=== PATIENT | female | born 1995 | race Caucasian/White ===

== ENCOUNTER 2020-04-29 12:52 | Emergency (ER) | payer OTHER, SELFPAY ==
[2020-04-29] VITALS (7 sets, daily range): BP systolic 106–127; BP diastolic 56–77; PULSE 63–80; RESP 16–18; TEMP 36.8; O2SAT 99–100; BMI 29.5
[2020-04-29 13:18] LABS: Add Manual Diff / Slide Review NO; Basophils Absolute Auto 100 /uL (0-100); Basophils Percent Auto 0.5 % (0-2); Eosinophils Absolute Auto 1300 /uL (0-450); Eosinophils Percent Auto 11.6 % (2-4); Hematocrit 40.9 % (36-46); Hemoglobin 13.3 g/dL (12.0-16.0); Lymphocytes Absolute Auto 1900 /uL (1100-4500); Lymphocytes Percent Auto 17.7 % (25-40); Mean Corpuscular HGB Conc 32.6 % (30-36); Mean Corpuscular Hemoglobin 29.2 PG (26-34); Mean Corpuscular Volume 89.4 fL (80-100); Monocytes Absolute Auto 700 /uL (0-900); Monocytes Percent Auto 6.7 % (3-14); Neutrophils Absolute Auto 6900 /uL (1500-7000); Neutrophils Percent Auto 63.5 % (50-75); Platelet Count 240 X10^3/uL (150-400); Red Blood Cell Count 4.57 X10^6/uL (4.0-5.2); Red Cell Distribution Width 13.7 % (11.6-14.8); White Blood Cell Count 10.9 X10^3/uL (4.5-11.0)
[2020-04-29 13:22] LABS: INR 1.2 (0.9-1.3); Prothrombin Time 13.8 SECONDS (10.1-12.7)
[2020-04-29 13:24] LABS: Alanine Aminotransferase 21 IU/L (<35); Albumin 4.4 g/dL (3.5-5.0); Albumin Globulin Ratio 1.5 (1.0-2.8); Alkaline Phosphatase 78 U/L (38-126); Aspartate Aminotransferase 32 IU/L (14-36); Bilirubin Total 0.3 mg/dL (0.2-1.3); Blood Urea Nitrogen 18 mg/dL (7-17); Calcium 8.9 mg/dL (8.4-10.2); Carbon Dioxide 27 mmol/L (22-32); Chloride 108 mmol/L (98-107); Estimated Glomerular Filt Rate > 60.0 mL/min (>60); Glucose 87 mg/dL (70-100); HEMOLYSIS 34 (0-50); Lipase 36 U/L (23-300); PTT Partial Thromboplastin Tim 33 SECONDS (26.4-36.2); Potassium 3.9 mmol/L (3.4-5.1); Sodium 139 mmol/L (137-145); Total Protein 7.4 g/dL (6.3-8.2)
[2020-04-29] MEDS: SODIUM CHLORIDE 0.9% 1,000 ML 1000 ML IV ×2 (13:50→15:27)
[2020-04-29] MEDS: PANTOPRAZOLE 40 MG VIAL IV (13:51)
[2020-04-29] MEDS: ONDANSETRON 4 MG/2 ML INJ IV (13:51)
--- NOTE | 2020-04-29 15:52 | ED_ITS ---
HPI - Abdominal Pain <RODGER Cohen - Last Filed: 04/29/20 16:03> General Chief Complaint: Abdominal Pain Stated Complaint: abdominal pain Time Seen by Provider: 04/29/20 13:20 Source: patient Mode of arrival: Ambulatory Limitations: no limitations History of Present Illness HPI narrative: The patient is a 24-year-old Female nonsmoker who denies pertinent medical history who presents with a chief complaint of diarrhea since she ate out at [employer] the evening of the . She states that she is still having soft stools, they were previously watery. She states she is having mu ltiple per day. No fevers, no muscle aches or chills. Denies vomiting, did have some nausea. States that she has cramps before she has bowel movements otherwise no abdominal pain. Denies any dysuria urgency or frequency states she is on her menstrual cycle, day 2. Related Data Previous Rx's Medication Instructions Recorded ondansetron 4 mg PO Q6H PRN #20 tab 04/29/20 pantoprazole [Protonix] 20 mg PO DAILY #14 tab 04/29/20 Allergies Allergy/AdvReac Type Severity Reaction Status Date / Time No Known Drug Allergies Allergy Verified 04/29/20 13:03 Review of Systems <RODGER Cohen - Last Filed: 04/29/20 16:03> Review of Systems Narrative: GENERAL: Denies chills, fatigue, malaise, fever, sweats. HEENT: Denies sinus pain, ear pain, sore throat, difficulty swallowing, dizziness. RESPIRATORY: Denies dyspnea, cough, wheezing, hemoptysis, sputum. CARDIOVASCULAR: Denies chest pain, palpitations, orthopnea, edema, GASTROINTESTINAL: See HPI : Denies dysuria, frequency, incontinence, hematuria, urinary retention. MUSCULOSKELETAL: denies weakness, joint pain, or bony pain SKIN: Denies rash, skin lesions, or other NEUROLOGIC: Denies weakness, headache, numbness, change in speech, confusion, seizures, incoordination. PSYCHIATRIC: No concerning psychosocial issues. 12 point review of systems is negative except for those stated above Patient History <RODGER Cohen - Last Filed: 04/29/20 16:03> Social History Smoking Status: Never smoker Smoking Status: Never smoker alcohol intake frequency: holidays/special occasions only Substance Use Type: does not use Exam <RODGER Cohen - Last Filed: 04/29/20 16:03> Narrative Exam Narrative: GENERAL: This is a well-nourished, well-developed patient, in no acute distress HEAD: Atraumatic. Normocephalic. No temporal or scalp tenderness. EYES: Pupils equal round and reactive. Extraocular motions intact. No scleral icterus. No injection or drainage. ENT: Nose without bleeding, purulent drainage or septal hematoma. Throat without erythema, wearing a mask. Airway patent. NECK: Trachea midline. No JVD or lymphadenopathy. Supple, nontender, no meningeal signs. CARDIOVASCULAR: Regular rate and rhythm RESPIRATORY: Clear to auscultation. Breath sounds equal bilaterally. No wheezes, rales, or rhonchi. No cough. No increased respiratory effort. No accessory muscle use. GASTROINTESTINAL: Abdomen soft, non-tender, nondistended. No hepato- splenomegaly, or palpable masses. No guarding. Active bowel sounds all 4 quad rants EXTREMITIES: No clubbing, cyanosis, or edema. No joint tenderness, effusion, or edema noted. BACK: Nontender without deformity or crepitance. No flank tenderness. NEURO: AOx3. SKIN: No rash or erythema on visible skin Initial Vital Signs Initial Vital Signs: Vital Signs Temperature 98.2 F 04/29/20 13:00 Pulse Rate 80 04/29/20 13:00 Respiratory Rate 16 04/29/20 13:00 Blood Pressure 117/77 04/29/20 13:00 Pulse Oximetry 100 04/29/20 13:00 <Romy Francisco DO - Last Filed: 04/30/20 19:11> Initial Vital Signs Initial Vital Signs: Vital Signs Temperature 98.2 F 04/29/20 13:00 Pulse Rate 80 04/29/20 13:00 Respiratory Rate 16 04/29/20 13:00 Blood Pressure 117/77 04/29/20 13:00 Pulse Oximetry 100 04/29/20 13:00 Scores <RODGER Cohen - Last Filed: 04/29/20 16:03> GCS Dubberly coma scale eye opening: Spontaneous Jaden coma scale verbal response: Orientated Dubberly coma scale motor response: Obey commands Dubberly coma scale total score: 15 Course <ANA Cohen-BC - Last Filed: 04/29/20 16:03> Orders Ordered: Discontinued Medications Sodium Chloride (Normal Saline 0.9%) 1,000 mls @ 1,000 mls/hr IV BOLUS ONE Stop: 04/29/20 14:41 Last Infusion: 04/29/20 15:08 Dose: 0 mls/hr Documented by: Admin: 04/29/20 13:50 Dose: 1,000 mls/hr Documented by: AMANUEL Sodium Chloride (Normal Saline 0.9%) 1,000 mls @ 1,000 mls/hr IV BOLUS ONE Stop: 04/29/20 15:40 Last Admin: 04/29/20 15:27 Dose: 1,000 mls/hr Documented by: CHINO Ondansetron HCl (Ondansetron 4 Mg/2 Ml Inj) 4 mg IV NOW ONE Stop: 04/29/20 13:43 Last Admin: 04/29/20 13:51 Dose: 4 mg Documented by: AMANUEL Ondansetron HCl (Ondansetron 4 Mg/2 Ml Inj) 4 mg IV NOW ONE Stop: 04/29/20 15:29 Last Admin: 04/29/20 15:55 Dose: Not Given Documented by: GRAYSON Pantoprazole Sodium (Pantoprazole 40 Mg Vial) 40 mg IV NOW ONE Stop: 04/29/20 13:43 Last Admin: 04/29/20 13:51 Dose: 40 mg Documented by: AMANUEL Vital Signs Vital signs: Vital Signs - 8 hr 04/29/20 13:00 04/29/20 13:31 04/29/20 14:00 Temperature 98.2 F Pulse Rate 80 72 65 Respiratory Rate 16 Blood Pressure 117/77 127/77 116/61 Pulse Oximetry 100 100 99 04/29/20 14:30 04/29/20 15:00 Temperature Pulse Rate 63 66 Respiratory Rate Blood Pressure 115/64 Pulse Oximetry 100 100 <Romy Francisco DO - Last Filed: 04/30/20 19:11> Orders Ordered: Discontinued Medications Sodium Chloride (Normal Saline 0.9%) 1,000 mls @ 1,000 mls/hr IV BOLUS ONE Stop: 04/29/20 14:41 Last Infusion: 04/29/20 15:08 Dose: 0 mls/hr Documented by: Admin: 04/29/20 13:50 Dose: 1,000 mls/hr Documented by: AMANUEL Sodium Chloride (Normal Saline 0.9%) 1,000 mls @ 1,000 mls/hr IV BOLUS ONE Stop: 04/29/20 15:40 Last Admin: 04/29/20 15:27 Dose: 1,000 mls/hr Documented by: CHINO Ondansetron HCl (Ondansetron 4 Mg/2 Ml Inj) 4 mg IV NOW ONE Stop: 04/29/20 13:43 Last Admin: 04/29/20 13:51 Dose: 4 mg Documented by: AMANUEL Ondansetron HCl (Ondansetron 4 Mg/2 Ml Inj) 4 mg IV NOW ONE Stop: 04/29/20 15:29 Last Admin: 04/29/20 15:55 Dose: Not Given Documented by: GRAYSON Pantoprazole Sodium (Pantoprazole 40 Mg Vial) 40 mg IV NOW ONE Stop: 04/29/20 13:43 Last Admin: 04/29/20 13:51 Dose: 40 mg Documented by: AMANUEL Vital Signs Vital signs: Vital Signs - 8 hr 04/29/20 13:00 04/29/20 13:31 04/29/20 14:00 Temperature 98.2 F Pulse Rate 80 72 65 Respiratory Rate 16 Blood Pressure 117/77 127/77 116/61 Pulse Oximetry 100 100 99 04/29/20 14:30 04/29/20 15:00 Temperature Pulse Rate 63 66 Respiratory Rate Blood Pressure 115/64 Pulse Oximetry 100 100 MDM - Abdominal Pain <ANA Cohen-BC - Last Filed: 04/29/20 16:03> Differential Diagnosis Differential diagnosis: Likely abdominal pain and gastroenteritis Lab Data Attestation: I reviewed the patient's lab results. Result diagrams: 04/29/20 13:06 04/29/20 13:06 Labs: Lab Results 04/29/20 04/29/20 04/29/20 Range/Units 13:06 13:06 13:06 WBC 10.9 (4.5-11.0) X10^3/uL RBC 4.57 (4.0-5.2) X10^6/uL Hgb 13.3 (12.0-16.0) g/dL Hct 40.9 (36-46) % MCV 89.4 (80-100) fL MCH 29.2 (26-34) PG MCHC 32.6 (30-36) % RDW 13.7 (11.6-14.8) % Plt Count 240 (150-400) X10^3/uL Neut % (Auto) 63.5 (50-75) % Lymph % (Auto) 17.7 L (25-40) % Bureau % (Auto) 6.7 (3-14) % Eos % (Auto) 11.6 H (2-4) % Baso % (Auto) 0.5 (0-2) % Neut # (Auto) 6900 (8477-2523) /uL Lymph # (Auto) 1900 (5118-8684) /uL Bureau # (Auto) 700 (0-900) /uL Eos # (Auto) 1300 H (0-450) /uL Baso # (Auto) 100 (0-100) /uL PT 13.8 H (10.1-12.7) SECONDS INR 1.2 (0.9-1.3) APTT 33 (26.4-36.2) SECONDS Sodium 139 (137-145) mmol/L Potassium 3.9 (3.4-5.1) mmol/L Chloride 108 H (98-107) mmol/L Carbon Dioxide 27 (22-32) mmol/L BUN 18 H (7-17) mg/dL Creatinine 0.75 (0.52-1.04) mg/dL Estimated GFR > 60.0 (>60) mL/min BUN/Creatinine Ratio 24.0 H (6-22) Glucose 87 (70-100) mg/dL Calcium 8.9 (8.4-10.2) mg/dL Total Bilirubin 0.3 (0.2-1.3) mg/dL AST 32 (14-36) IU/L ALT 21 (<35) IU/L Alkaline Phosphatase 78 (38-126) U/L Total Protein 7.4 (6.3-8.2) g/dL Albumin 4.4 (3.5-5.0) g/dL Globulin 3.0 (1.7-4.1) g/dL Albumin/Globulin Ratio 1.5 (1.0-2.8) Lipase 36 (23-300) U/L Point of care testing: Point of Care Testing Test Results Negative Urine Dip Bedside Urine Glucose Negative Bedside Urine Bilirubin - Negative Bedside Urine Ketone - Negative Urine Specific Bittinger 1.030 Bedside Urine Occult Blood +++ Bedside Urine pH 6 Bedside Urine Protein - Negative Bedside Urine Urobilinogen - Negative Bedside Urine Nitrite - Negative Bedside Urine Leukocytes - Negative Esterase MDM Narrative Medical decision making narrative: The patient is a 24-year-old female who presents with a chief complaint of diarrhea and abdominal cramping. The patient has reassuring vital signs, normal renal function, no leukocytosis. Urine has no signs of infection. She is nontender to palpation all stomach quadrants on exam. She is given IV fluid, Protonix and Zofran and feels improved. Will hold off on imaging at this point to help avoid radiation, patient is okay with plan. She was unable to give a stool sample if throughout her several hour stay in the emergency department. I discussed at length rest pushing fluids, following up with primary care provider coming back to the ER for any acute concerns such as abdominal pain with fever, inability keep down fluids etcetera. Patient was able to tolerate p.o. food and fluids in the emergency department prior to discharge. No questions or concerns upon discharge states understanding return precautions as well as follow-up care <Romy Francisco, DO - Last Filed: 04/30/20 19:11> Lab Data Labs: Lab Results 04/29/20 04/29/20 04/29/20 Range/Units 13:06 13:06 13:06 WBC 10.9 (4.5-11.0) X10^3/uL RBC 4.57 (4.0-5.2) X10^6/uL Hgb 13.3 (12.0-16.0) g/dL Hct 40.9 (36-46) % MCV 89.4 (80-100) fL MCH 29.2 (26-34) PG MCHC 32.6 (30-36) % RDW 13.7 (11.6-14.8) % Plt Count 240 (150-400) X10^3/uL Neut % (Auto) 63.5 (50-75) % Lymph % (Auto) 17.7 L (25-40) % Bureau % (Auto) 6.7 (3-14) % Eos % (Auto) 11.6 H (2-4) % Baso % (Auto) 0.5 (0-2) % Neut # (Auto) 6900 (7098-2776) /uL Lymph # (Auto) 1900 (6159-9619) /uL Bureau # (Auto) 700 (0-900) /uL Eos # (Auto) 1300 H (0-450) /uL Baso # (Auto) 100 (0-100) /uL PT 13.8 H (10.1-12.7) SECONDS INR 1.2 (0.9-1.3) APTT 33 (26.4-36.2) SECONDS Sodium 139 (137-145) mmol/L Potassium 3.9 (3.4-5.1) mmol/L Chloride 108 H (98-107) mmol/L Carbon Dioxide 27 (22-32) mmol/L BUN 18 H (7-17) mg/dL Creatinine 0.75 (0.52-1.04) mg/dL Estimated GFR > 60.0 (>60) mL/min BUN/Creatinine Ratio 24.0 H (6-22) Glucose 87 (70-100) mg/dL Calcium 8.9 (8.4-10.2) mg/dL Total Bilirubin 0.3 (0.2-1.3) mg/dL AST 32 (14-36) IU/L ALT 21 (<35) IU/L Alkaline Phosphatase 78 (38-126) U/L Total Protein 7.4 (6.3-8.2) g/dL Albumin 4.4 (3.5-5.0) g/dL Globulin 3.0 (1.7-4.1) g/dL Albumin/Globulin Ratio 1.5 (1.0-2.8) Lipase 36 (23-300) U/L Point of care testing: Point of Care Testing Test Results Negative Urine Dip Bedside Urine Glucose Negative Bedside Urine Bilirubin - Negative Bedside Urine Ketone - Negative Urine Specific Bittinger 1.030 Bedside Urine Occult Blood +++ Bedside Urine pH 6 Bedside Urine Protein - Negative Bedside Urine Urobilinogen - Negative Bedside Urine Nitrite - Negative Bedside Urine Leukocytes - Negative Esterase Discharge Plan Departure Patient Disposition: Home Clinical Impression: Abdominal cramping, Nausea Diarrhea Qualifiers: Diarrhea type: unspecified type Qualified Code(s): R19.7 - Diarrhea, unspecified Instructions: Diarrhea (Alternative Therapy), DI for Abdominal Pain-Adult, DI for Diarrhea and Traveler's Diarrhea -- Adult, DI for Nausea -- Adult Activity Restrictions/Additional Instructions: Thank you for trusting us with your care today As discussed, I sent 2 prescriptions to [facility] in [place]. Please rest and push fluids. Please follow-up with primary care provider. I have given you contact information to the [facility] human resources file clerk who can help you identify a PCP in the area. As discussed, please come back to the ER for acute concerns such as abdominal pain with fever, inability keep down fluids etcetera Prescriptions: New ondansetron 4 mg tablet,disintegrating 4 mg PO Q6H PRN (Reason: nausea and vomiting) Qty: 20 RF: 0 pantoprazole [Protonix] 20 mg tablet,delayed release (DR/EC) 20 mg PO DAILY Qty: 14 RF: 0 Referrals: [facility] [Outside] <Romy Francisco DO - Last Filed: 04/30/20 19:11> Cosign ED Attending Cosmoiraature Attestation: I was immediately available in the department for consultation. Documentation has been reviewed.
--- NOTE | 2020-05-27 22:45 | PC.NURSE ---
late entry: IV fluids NS 1000ml ended at 1600
== END 2020-04-29 16:20 | disposition home or self-care (01) ==
PROVIDERS: Emergency Medicine; Emergency Provider Nurse Practitioner Family
DX: R10.9 Unspecified abdominal pain (principal); R11.0 Nausea; R19.7 Diarrhea, unspecified
CPT/HCPCS: 36415; 80053; 81003; 81025; 83690; 85025; 85610; 85730; 96361; 96374; 96375; 99281; 99284; C9113; J2405

== ENCOUNTER → 2022-01-13 14:24 | Outpatient (CLI) | payer OTHER, MEDICAID, SELFPAY ==
[2022-01-13 15:06] LABS: Add Manual Diff / Slide Review NO; Basophils Absolute Auto 0 /uL (0-100); Basophils Percent Auto 0.1 % (0-2); Eosinophils Absolute Auto 0 /uL (0-450); Eosinophils Percent Auto 0.4 % (2-4); Hematocrit 37.9 % (36-46); Hemoglobin 13.5 g/dL (12.0-16.0); Lymphocytes Absolute Auto 1400 /uL (1100-4500); Lymphocytes Percent Auto 13.5 % (25-40); Mean Corpuscular HGB Conc 35.7 % (30-36); Mean Corpuscular Hemoglobin 31.1 PG (26-34); Monocytes Absolute Auto 600 /uL (0-900); Monocytes Percent Auto 5.5 % (3-14); Neutrophils Absolute Auto 8600 /uL (1500-7000); Neutrophils Percent Auto 80.5 % (50-75); Platelet Count 214 X10^3/uL (150-400); Red Blood Cell Count 4.35 X10^6/uL (4.0-5.2); Red Cell Distribution Width 13.9 % (11.6-14.8); White Blood Cell Count 10.7 X10^3/uL (4.5-11.0)
[2022-01-13 16:40] LABS: Appearance Urine UA CLEAR; Bilirubin Urine UA NEGATIVE (NEGATIVE); Color Urine UA YELLOW; Glucose Urine UA NEGATIVE (Negative); Ketones Urine UA TRACE (NEGATIVE); Leukocyte Esterase Urine UA TRACE (NEGATIVE); Nitrite Urine UA NEGATIVE (Negative); Occult Blood Urine UA NEGATIVE (Negative); Protein Urine UA TRACE (Negative)
[2022-01-13 16:42] LABS: pH Urine UA 6.5 (4.5-8.0)
[2022-01-13 16:51] LABS: Bacteria Urine None Seen; RBC Urine 0-1/HPF (0-5/HPF); Squamous Epithelial Cell Urine 0-1 /HPF (0-5/HPF); Transitional Epi Cells Urine 0-1/HPF (0-5/HPF); WBC Urine 5-10/HPF (0-5/HPF)
[2022-01-13 17:31] LABS: Hepatitis B Surface Antigen NEGATIVE s/c (NEGATIVE); Rubella Antibody IgG 5.7 IU/mL (>15)
[2022-01-13 17:43] LABS: HIV 1 & 2 Ab/Ag 4th Gen Combo NEGATIVE (NEGATIVE); Hep C Virus Ab w/Reflex Quant NEGATIVE s/c (NEGATIVE)
[2022-01-14 09:44] LABS: RPR Screen Non Reactive (Non Reactive)
[2022-01-14 11:38] LABS: Varicella IgG Antibody <135 index (Immune >165)
== END ==
PROVIDERS: Referring Provider Obstetrics & Gynecology; Visit Provider Obstetrics & Gynecology
DX: Z34.01 Encounter for supervision of normal first pregnancy, first trimester (principal)
CPT/HCPCS: 36415; 80055; 81003; 81015; 86787; 86803; 86850; 86900; 86901; 87086; 87389

== ENCOUNTER → 2022-02-16 14:57 | Outpatient (CLI) | payer OTHER, MEDICAID, SELFPAY ==
--- NOTE | 2022-02-16 14:57 | DI.US.S_ITS ---
PROCEDURE: US OB >= 14 WEEKS FETUS INDICATIONS: 20 Week Anatomy Scan OUTSIDE/PRIOR DATING DATA: Last menstrual period (LMP): 09/30/2021. LMP-based estimated date of delivery (RONY): 07/07/2021. First dating scan (date and location): 02/16/2022. Estimated date of delivery (RONY) from first dating scan: 06/30/2021. TECHNIQUE: Real-time scanning was performed of the fetus, with image documentation and biometric measurements. Endovaginal scanning: Not performed COMPARISON: None. FINDINGS: General: A single living intrauterine gestation is present. Presentation: Variable. Placenta: Placental position is left frontal , without previa. Amniotic fluid index: 13.3 cm, normal range is 5-24 cm. Single deepest vertical pocket is 4.5 cm. heart rate: 132 beats per minute. Maternal cervical canal: 3.6 cm long. Normal lower limit is 2.5 cm. biometrics: Biparietal diameter: 20 weeks 6 days Head circumference: 20 weeks 5 days Abdominal circumference: 21 weeks 5 days Femur length: 20 weeks 2 days Clinically estimated gestational age: 19 weeks 6 days Composite gestational age from present scan: 20 weeks 6 days Estimated weight and percentile: 394 g; 96% Anatomic survey: Neuro: Ventricles are non-dilated at less than 10 mm. Cisterna magna is normal at 3-11 mm. Cerebellum is normal in size and morphology. Nuchal skin fold: Normal at less than 6 mm between 14-21 weeks gestational age. Face: Nose and lips, facial profile are normal. Spine: No evidence for spina bifida. Heart: 4-chambered heart is present, with normal ventricular outflow tracts. Diaphragm: Diaphragm is intact. Stomach: Left-sided stomach is present. Kidneys: No hydronephrosis. Normal is less than 5 mm in 2nd trimester, less than 7 mm in 3rd trimester. Cord: 3-vessel cord. Marginal placental cord insertion. Bladder: Normal in size. Extremities: All 4 extremities identified. IMPRESSION: 1. A single living intrauterine gestation with an estimated gestational age of 20 weeks 6 days based on the current ultrasound, corresponding to ultrasound RONY 06/30/2021. 2. Normal anatomic survey. 3. The estimated weight is at 96%. Recommend clinical and imaging follow-up. We strive to produce accurate, complete, and clear reports of imaging services. To assist us in improving patient care, this report was composed using standard report templates and voice recognition software. Therefore, it may contain abnormal punctuation, insertions and/or omissions. Occasional wrong-word or sound-alike substitutions may occur. Though we review the report and make efforts to correct it, we do recommend that the report be read carefully in proper context to recognize any text inaccuracies. Dictated by: Kee Benton M.D. on 02/16/2022 at 16:51 Approved by: Kee Benton M.D. on 02/17/2022 at 9:22
== END ==
PROVIDERS: Referring Provider Obstetrics & Gynecology; Visit Provider Obstetrics & Gynecology
DX: Z3A.20 20 weeks gestation of pregnancy (principal); Z34.02 Encounter for supervision of normal first pregnancy, second trimester
CPT/HCPCS: 76811

== ENCOUNTER 2022-02-25 01:40 | Emergency (ER) | payer OTHER, MEDICAID, SELFPAY ==
[2022-02-25 01:45] VITALS: BP 111/63; PULSE 78; RESP 18; TEMP 36.6
--- NOTE | 2022-02-25 01:45 | PC.NURSE ---
Here with c/o epigastric left sided pain that started this evening - believes that she awoke from sleep bc of the pain - 2 episodes of vomiting - PWD with respirations equal and unlabored bilaterally - airway patent
--- NOTE | 2022-02-25 01:53 | DI.US.S_ITS ---
PROCEDURE: US ABDOMEN LIMITED INDICATIONS: epigastric /RUQ pain, radiation to back, 21 weeks preg TECHNIQUE: Real-time scanning was performed of the abdominal and retroperitoneal organs, with image documentation. COMPARISON: None. FINDINGS: Liver: Liver is normal in size and homogeneous in echotexture. Gallbladder: There is a 4 mm stone in dependent portion of gallbladder lumen near neck of gallbladder. No gallbladder wall thickening or pericholecystic fluid. No sonographic Cazares sign. Biliary ducts: Intrahepatic bile ducts are non-dilated. Extrahepatic bile duct caliber measures 4.3 mm. Normal is 6-7 mm or less in diameter, or 10 mm or less post-cholecystectomy. Pancreas: Pancreas is poorly visualized due to overlying bowel gas. IMPRESSION: 1. Cholelithiasis without sonographic evidence of acute cholecystitis. No biliary ductal dilatation. 2. Normal appearing liver. No discrepancies. Dictated by: Merlin Peters M.D. on 02/25/2022 at 8:22 Approved by: Merlin Peters M.D. on 02/25/2022 at 8:23
--- NOTE | 2022-02-25 02:23 | ED.BACK ---
HPI - Back Pain/Injury General Chief Complaint: Back Pain/Injury Stated Complaint: MID TO UPPER BACK PAIN 21 WEEKS Time Seen by Provider: 02/25/22 01:52 Source: patient History of Present Illness HPI Narrative: 26-year-old female nonsmoker at 21 weeks without chronic medical history presents with significant other and a chief complaint of epigastric and right upper quadrant pain that radiates to her upper back between her shoulder blades. She states that it came on essentially suddenly about an hour prior to her arrival and she thinks it woke her up. Lying flat seems to make it worse but lying on her side seems to help. She states it big deep breath makes it worse though she is not short of breath. She is had no cough, hemoptysis. She denies headache, runny nose or sore throat. She denies chest pain but states her upper abdomen hurts. She has vomited twice and states that vomiting does not seem to affect her discomfort whatsoever. She denies abdominal pain, dysuria, frequency or urgency. She denies vaginal bleeding or leakage of fluid nor discharge. Related Data Home Medications Medication Instructions Recorded Confirmed cefdinir 300 mg capsule 300 mg PO BID 12/28/21 02/16/22 prenat.vits,jasiel,[id number] 1 tab PO DAILY 12/28/21 02/16/22 Previous Rx's Medication Instructions Recorded metoclopramide HCl 10 mg tablet 10 mg PO Q6H PRN nausea and 01/17/22 (Reglan) vomiting #20 tabs Allergies Allergy/AdvReac Type Severity Reaction Status Date / Time No Known Drug Allergies Allergy Verified 02/16/22 13:16 Review of Systems Review of Systems Narrative: GENERAL: Denies chills, fatigue, malaise, fever, sweats. HEENT: Denies sinus pain, ear pain, sore throat, difficulty swallowing, dizziness. RESPIRATORY: Denies dyspnea, cough, wheezing, hemoptysis, sputum. CARDIOVASCULAR: Denies chest pain, palpitations, orthopnea, edema, GASTROINTESTINAL: See HPI : Denies dysuria, frequency, incontinence, hematuria, urinary retention. MUSCULOSKELETAL: See HPI SKIN: Denies rash, skin lesions, or other NEUROLOGIC: Denies weakness, headache, numbness, change in speech, confusion, seizures, incoordination. PSYCHIATRIC: No concerning psychosocial issues. 12 point review of systems is negative except for those stated above Patient History Medical History Scalp contusion Surgical History Anesthesia History of tonsillectomy and adenoidectomy (~2002) [place] teeth extracted (~2013) Family History Mother Hypothyroid Autoimmune disorder History of Graves' disease Grandmother Hypothyroid Pramod's disease Grandmother Lung cancer Breast cancer Brain cancer Skin cancer Brother High-functioning autism spectrum disorder Grandfather History of heart disease Social History marital status: number of children: 0 household members: spouse and family (16-year-old brother) lives independently: Yes housing: [facility] pets and animals: Yes (1 dog) education level: vocational occupational status: employed current occupational exposures/hazards: No special isidro needs: No travel history: over 6 months ago seatbelt use: always water heater temp set < 120 deg: Yes working smoke detector in home: Yes fire extinguisher in home: Yes carbon monox detector in home: Yes firearms in home: Yes firearms unloaded and locked: Yes do you feel safe at home: Yes Smoking Status: Never smoker second hand exposure: No alcohol intake: former (rarely, 1-2/month prior to ) substance use type: does not use during the past year weight has: remained stable well-balanced diet: daily or most days daily servings fruits/ve-4 caffeine: Yes (1 cup black tea/day) Type(s) of exercise: regular exercise and weight lifting frequency: 3-4 times per week Smoking Status: Never smoker alcohol intake frequency: holidays/special occasions only Substance Use Type: does not use Exam Narrative Exam Narrative: GENERAL: [26 year old patient appears stated age. Well-developed patient, in mild distress. Obviously uncomfortable, lying on her side and holding an emesis bag HEAD: Atraumatic. Normocephalic. EYES: Pupils equal round and reactive. Extraocular motions intact. No scleral icterus. No injection or drainage. ENT: Nose without bleeding, purulent drainage. Throat without erythema, tonsillar hypertrophy or exudate. Airway patent. NECK: Trachea midline. Non tender CARDIOVASCULAR: Regular rate and rhythm without murmurs, gallops, or rubs. RESPIRATORY: Clear to auscultation. Breath sounds equal bilaterally. No wheezes, rales, or rhonchi. GASTROINTESTINAL: Abdomen soft, gravid above umbilicus, tender to palpation in epigastrium and right upper quadrant EXTREMITIES: No edema or joint tenderness. BACK: Nontender without deformity or crepitance. No flank tenderness. No reproducible pain on palpation of mid or upper back NEURO: AOx3. SKIN: No rash or erythema of visible areas Initial Vital Signs Initial Vital Signs: Vital Signs Temperature 97.9 F 02/25/22 01:45 Pulse Rate 78 02/25/22 01:45 Respiratory Rate 18 02/25/22 01:45 Blood Pressure 111/63 02/25/22 01:45 Oxygen Delivery Method 02/25/22 01:45 Course Orders Ordered: ED Orders 02/25/22 01:52 Complete Blood Count AUTO DIFF Stat 02/25/22 01:53 US abdomen limited Stat 02/25/22 02:00 Comprehensive Metabolic Panel Stat Lipase Stat Magnesium Stat Discontinued Medications Sodium Chloride (Normal Saline 0.9%) 1,000 mls @ 1,000 mls/hr IV BOLUS ONE Stop: 02/25/22 02:51 Last Admin: 02/25/22 02:28 Dose: 1,000 mls/hr Documented By: VALENTIN Ondansetron HCl (Ondansetron 4 Mg/2 Ml Inj) 4 mg IV NOW ONE Stop: 02/25/22 01:53 Last Admin: 02/25/22 02:29 Dose: 4 mg Documented By: VALENTIN Pantoprazole Sodium (Pantoprazole 40 Mg Vial) 40 mg IV NOW ONE Stop: 02/25/22 01:53 Last Admin: 02/25/22 02:29 Dose: 40 mg Documented By: VALENTIN Vital Signs Vital signs: Vital Signs - 8 hr 02/25/22 01:45 Temperature 97.9 F Pulse Rate 78 Respiratory Rate 18 Blood Pressure 111/63 Oxygen Delivery Method Room Air MDM - Back Pain/Injury Lab Data Result diagrams: 02/25/22 01:52 02/25/22 02:00 Labs: Lab Results 12/09/22 12/09/22 12/09/22 Range/Units 01:52 02:00 02:00 WBC 12.9 H (4.5-11.0) X10^3/uL RBC 3.81 L (4.0-5.2) X10^6/uL Hgb 11.8 L (12.0-16.0) g/dL Hct 34.5 L (36-46) % MCV 90.6 (80-100) fL MCH 31.0 (26-34) PG MCHC 34.2 (30-36) % RDW 14.4 (11.6-14.8) % Plt Count 188 (150-400) X10^3/uL Neut % (Auto) 80.8 H (50-75) % Lymph % (Auto) 12.1 L (25-40) % Mcmullen % (Auto) 6.2 (3-14) % Eos % (Auto) 0.6 L (2-4) % Baso % (Auto) 0.3 (0-2) % Neut # (Auto) 34781 H (5510-8409) /uL Lymph # (Auto) 1600 (3597-2909) /uL Mcmullen # (Auto) 800 (0-900) /uL Eos # (Auto) 100 (0-450) /uL Baso # (Auto) 0 (0-100) /uL Sodium Cancelled 135 L Potassium Cancelled 3.3 L Chloride Cancelled 105 Carbon Dioxide Cancelled 22 BUN Cancelled 15 Creatinine Cancelled 0.67 Estimated GFR Cancelled > 60 BUN/Creatinine Ratio Cancelled 22.4 H Glucose Cancelled 113 H Calcium Cancelled 8.7 Magnesium 1.8 (1.6-2.3) mg/dL Total Bilirubin Cancelled 0.3 AST Cancelled 31 ALT Cancelled 53 H Alkaline Phosphatase Cancelled 73 Total Protein Cancelled 6.5 Albumin Cancelled 3.7 Globulin Cancelled 2.8 Albumin/Globulin Ratio Cancelled 1.3 Lipase 29 (23-300) U/L Imaging Data US - abdomen: Radiologist's Impression: Gallbladder stones and sludge with distended gallbladder. No convincing evidence of acute cholecystitis MDM Narrative Medical decision making narrative: 26-year-old female nonsmoker at 21 weeks without chronic medical history presents with significant other and a chief complaint of epigastric pain and back pain with N/V Multiple etiologies for patient's symptoms considered include, but not limited to: GB disease, pancreatitis, musculoskeletal vs. other Patient's symptoms improved over duration of stay with above-stated therapies. History, physical exam, labs, imaging, and response to therapies have been reassuring. Findings and discharge diagnosis discussed with patient/family followed by verbalization of understanding Return precautions discussed with patient/family whom verbalize understanding. Pain has been well controlled and patient is tolerating oral hydration. Discharge Plan Departure Patient Disposition: Home Clinical Impression: Acute epigastric pain Instructions: DI for Epigastric Pain Activity Restrictions/Additional Instructions: *You have been diagnosed with [epigastric abdominal pain and upper back pain likely due to your gallbladder] * As we discussed your history and physical exam as well as labs and imaging are very reassuring. There is no evidence of any severe diagnoses that would require a specific or immediate intervention. *What to do: *Please continue to take your regular medications as directed. *Please follow up with your primary OB provider in 2-3 days, call for an appointment. Let them know you were seen in the Emergency Department and that we ask that you be seen in follow up. We will electronically transmit a record of today's note if your PCP is in our system *Please consider a clear liquid diet for the next 24-48 hours and then slowly advance to regular as tolerated. Also, try to avoid acidic or fatty foods as this may worsen your symptoms *Return to Emergency Department if you should have any new, worsening or concerning symptoms, such as [fever greater than 101 F, shaking chills, worsening pain, persistent vomiting or other bothersome symptoms] Prescriptions: No Action metoclopramide HCl [Reglan] 10 mg tablet 10 mg PO Q6H PRN (Reason: nausea and vomiting) Qty: 20 1RF prenat.vits,jasiel,[id number] Tablet 1 tab PO DAILY cefdinir 300 mg capsule 300 mg PO BID Label Comments: will complete on 12/31/21 Referrals: Colleen Yin MD [Physician] - Miscellaneous,MD Diana [Primary Care Provider] -
[2022-02-25 02:24] LABS: Add Manual Diff / Slide Review NO; Basophils Absolute Auto 0 /uL (0-100); Basophils Percent Auto 0.3 % (0-2); Eosinophils Absolute Auto 100 /uL (0-450); Eosinophils Percent Auto 0.6 % (2-4); Hematocrit 34.5 % (36-46); Hemoglobin 11.8 g/dL (12.0-16.0); Lymphocytes Absolute Auto 1600 /uL (1100-4500); Lymphocytes Percent Auto 12.1 % (25-40); Mean Corpuscular HGB Conc 34.2 % (30-36); Mean Corpuscular Volume 90.6 fL (80-100); Monocytes Absolute Auto 800 /uL (0-900); Monocytes Percent Auto 6.2 % (3-14); Neutrophils Absolute Auto 10400 /uL (1500-7000); Neutrophils Percent Auto 80.8 % (50-75); Platelet Count 188 X10^3/uL (150-400); Red Blood Cell Count 3.81 X10^6/uL (4.0-5.2); Red Cell Distribution Width 14.4 % (11.6-14.8); White Blood Cell Count 12.9 X10^3/uL (4.5-11.0)
[2022-02-25] MEDS: SODIUM CHLORIDE 0.9% 1,000 ML 1000 ML IV (02:28)
[2022-02-25] MEDS: ONDANSETRON 4 MG/2 ML INJ IV (02:29)
[2022-02-25] MEDS: PANTOPRAZOLE 40 MG VIAL IV (02:29)
--- NOTE | 2022-02-25 02:30 | PC.NURSE ---
Resting quietly in NAD - no needs voiced - PWD - family at bedside
[2022-02-25 02:31] LABS: Alanine Aminotransferase 53 IU/L (<35); Albumin 3.7 g/dL (3.5-5.0); Albumin Globulin Ratio 1.3 (1.0-2.8); Alkaline Phosphatase 73 U/L (38-126); Aspartate Aminotransferase 31 IU/L (14-36); BUN Creatinine Ratio 22.4 (6-22); Bilirubin Total 0.3 mg/dL (0.2-1.3); Blood Urea Nitrogen 15 mg/dL (7-17); Calcium 8.7 mg/dL (8.4-10.2); Carbon Dioxide 22 mmol/L (22-32); Chloride 105 mmol/L (98-107); Estimated Glomerular Filt Rate > 60 mL/min (>60); Globulin 2.8 g/dL (1.7-4.1); Glucose 113 mg/dL (70-100); HEMOLYSIS < 15 (0-50); Lipase 29 U/L (23-300); Magnesium 1.8 mg/dL (1.6-2.3); Potassium 3.3 mmol/L (3.4-5.1); Sodium 135 mmol/L (137-145); Total Protein 6.5 g/dL (6.3-8.2)
--- NOTE | 2022-02-25 02:45 | PC.NURSE ---
No changes in pt status at this time
--- NOTE | 2022-02-25 03:30 | PC.NURSE ---
no changes in pt status at this time
--- NOTE | 2022-02-25 04:45 | PC.NURSE ---
Ambulatory to the bathroom - steady gait - family at bedside
[2022-02-25 05:03] VITALS: BP 101/58; PULSE 72; RESP 18; O2SAT 98
== END 2022-02-25 05:05 | disposition home or self-care (01) ==
PROVIDERS: Emergency Provider Emergency Medicine
DX: O26.892 Other specified pregnancy related conditions, second trimester (principal); R10.13 Epigastric pain; R10.11 Right upper quadrant pain; Z3A.21 21 weeks gestation of pregnancy
CPT/HCPCS: 36415; 76705; 80053; 83690; 83735; 85025; 96374; 96375; 99284; C9113; J2405

== ENCOUNTER → 2022-04-01 12:14 | Outpatient (CLI) | payer OTHER, MEDICAID, SELFPAY ==
[2022-04-01 15:10] LABS: Hematocrit 35.5 % (36-46); Hemoglobin 12.3 g/dL (12.0-16.0)
[2022-04-01 15:32] LABS: GTT (PREG) 1 Hour PP 50gm Dose 86 mg/dL (76-139)
== END ==
PROVIDERS: Referring Provider Obstetrics & Gynecology; Visit Provider Obstetrics & Gynecology
DX: Z34.02 Encounter for supervision of normal first pregnancy, second trimester (principal); Z3A.26 26 weeks gestation of pregnancy
CPT/HCPCS: 36415; 82950; 85014; 85018

== ENCOUNTER → 2022-05-12 08:29 | Outpatient (CLI) | payer OTHER, MEDICAID, SELFPAY ==
--- NOTE | 2022-05-12 | DI.US.S_ITS ---
PROCEDURE: US OB FOLLOW UP INDICATIONS: LGA AND MARGINAL CORD INSERTION AT 20WK OUTSIDE/PRIOR DATING DATA: Last menstrual period (LMP): 09/30/2021. LMP-based estimated date of delivery (RONY): 2. First dating scan (date and location): 02/16/2022. Estimated date of delivery (RONY) from first dating scan: 06/30/2021. The calculations are made using the working RONY of 06/30/2021. TECHNIQUE: Real-time scanning was performed of the fetus, with image documentation and biometric measurements. Endovaginal scanning: None COMPARISON: None. FINDINGS: General: A single living intrauterine gestation is present. Presentation: Vertex. Placenta: Placental position is posterior , without previa. Amniotic fluid index: 25.4 cm, normal range is 5-24 cm. Single deepest vertical pocket is 8.9 cm. heart rate: 133 beats per minute. Maternal cervical canal: Not well visualized cm long. Normal lower limit is 2.5 cm. biometrics: Biparietal diameter: 9.0 cm, 36 week 4 day Head circumference: 31.4 cm, 35 week 2 day Abdominal circumference: 30.2 cm, 34 week 1 day Femur length: 6.4 cm, 33 week 0 day Clinically estimated gestational age: 33 week 0 day Composite gestational age from present scan: 34 week 5 day Estimated weight and percentile: 2369 g, 77th percentile Incidental note is made of marginal placental cord insertion IMPRESSION: Single live intrauterine consistent with 34 week 5 day gestation by current ultrasound. Biparietal diameter greater than 99th percentile ALVIN 25.4 cm greater than 95th percentile for dates Approved by: Baljit Sevilla M.D. on 05/12/2022 at 10:21
== END ==
PROVIDERS: Referring Provider Obstetrics & Gynecology; Visit Provider Obstetrics & Gynecology
DX: O43.193 Other malformation of placenta, third trimester; O36.63X0 Maternal care for excessive fetal growth, third trimester, not applicable or unspecified; Z3A.34 34 weeks gestation of pregnancy
CPT/HCPCS: 76816

== ENCOUNTER → 2022-06-09 11:39 | Outpatient (CLI) | payer OTHER, MEDICAID, SELFPAY ==
[2022-06-10 11:13] LABS: Strep Grp B PCR NEG for Grp B Strep
== END ==
PROVIDERS: Visit Provider Physician Assistant Medical
DX: Z34.03 Encounter for supervision of normal first pregnancy, third trimester (principal); Z3A.36 36 weeks gestation of pregnancy
CPT/HCPCS: 87653

== ENCOUNTER → 2022-06-16 10:33 | Outpatient (CLI) | payer OTHER, MEDICAID, SELFPAY ==
[2022-06-18 13:36] LABS: Bile Acids 48.9 umol/L (0.0-10.0)
== END ==
PROVIDERS: Referring Provider Specialist; Visit Provider Specialist
DX: O99.713 Diseases of the skin and subcutaneous tissue complicating pregnancy, third trimester (principal); L29.9 Pruritus, unspecified; Z3A.00 Weeks of gestation of pregnancy not specified
CPT/HCPCS: 36415; 82239

== ENCOUNTER 2022-06-20 13:11 | Observation (INO) | payer OTHER, MEDICAID, SELFPAY ==
--- NOTE | 2022-06-20 13:13 | DI.US.S_ITS ---
PROCEDURE: US OB BIOPHYSICAL PROFILE INDICATIONS: CHOLESTASIS OUTSIDE/PRIOR DATING DATA: Last menstrual period (LMP): September 30, 2021. LMP-based estimated date of delivery (RONY): July 07, 2022. First dating scan (date and location): February 16, 2022. Estimated date of delivery (RONY) from first dating scan: June 30, 2022. The calculations are made using the ultrasound RONY of June 30, 2022. TECHNIQUE: Real-time scanning was performed of the fetus for biophysical profile, with image documentation. Color and pulse Doppler interrogation was also performed of the umbilical artery near its insertion into the placenta. Endovaginal scanning: Not performed COMPARISON: None. FINDINGS: General: A single living intrauterine gestation is present. Presentation: Vertex. Placenta: Placental position is posterior , without previa. Amniotic fluid index: 17.8 cm, normal range is 5-24 cm. Single deepest vertical pocket is 5.5 cm. heart rate: 132 beats per minute. Maternal cervical canal: Maternal cervix not well visualized secondary to advanced gestational age and head positioning within the pelvis. Estimated gestational age from initial scan: 38 weeks and 4 days. Biophysical profile: Tone: 2 points. Movement: 2 points. Respiration: 2 points. Largest pocket of fluid: 2 points. IMPRESSION: Single living intrauterine gestation with estimated gestational age of approximately 38 weeks and 4 days. Biophysical profile score of 8 out of 8 We strive to produce accurate, complete, and clear reports of imaging services. To assist us in improving patient care, this report was composed using standard report templates and voice recognition software. Therefore, it may contain abnormal punctuation, insertions and/or omissions. Occasional wrong-word or sound-alike substitutions may occur. Though we review the report and make efforts to correct it, we do recommend that the report be read carefully in proper context to recognize any text inaccuracies. Dictated by: Walter Robles M.D. on 06/20/2022 at 14:08 Approved by: Walter Robles M.D. on 06/20/2022 at 14:12
[2022-06-20 14:59] LABS: Alanine Aminotransferase 246 IU/L (<35); Albumin 3.6 g/dL (3.5-5.0); Alkaline Phosphatase 239 U/L (38-126); Aspartate Aminotransferase 161 IU/L (14-36); Bilirubin Total 0.7 mg/dL (0.2-1.3); Bilirubin Unconjugated 0.2 mg/dL (0.0-1.1); Globulin 3.6 g/dL (1.7-4.1); HEMOLYSIS < 15 (0-50); Total Protein 7.2 g/dL (6.3-8.2)
== END 2022-06-20 14:51 | disposition home or self-care (01) ==
PROVIDERS: Admitting Provider Obstetrics & Gynecology; Referring Provider Obstetrics & Gynecology; Visit Provider Obstetrics & Gynecology
DX: O26.613 Liver and biliary tract disorders in pregnancy, third trimester (principal); Z3A.37 37 weeks gestation of pregnancy
CPT/HCPCS: 36415; 59025; 76819; 80076; G0378; G0379

== ENCOUNTER 2022-06-20 19:26 | Inpatient (IN) | payer OTHER, MEDICAID, SELFPAY ==
[2022-06-20 20:07] VITALS: BP 127/58
[2022-06-20] MEDS: DINOPROSTONE VAG (CERVIDIL) 10 MG VAG (20:15)
[2022-06-20 20:50] LABS: Add Manual Diff / Slide Review NO; Basophils Absolute Auto 100 /uL (0-100); Basophils Percent Auto 0.5 % (0-2); Eosinophils Absolute Auto 100 /uL (0-450); Eosinophils Percent Auto 0.7 % (2-4); Hematocrit 35.2 % (36-46); Hemoglobin 11.9 g/dL (12.0-16.0); Lymphocytes Absolute Auto 1600 /uL (1100-4500); Lymphocytes Percent Auto 12.2 % (25-40); Mean Corpuscular HGB Conc 33.8 % (30-36); Mean Corpuscular Hemoglobin 29.8 PG (26-34); Mean Corpuscular Volume 88.3 fL (80-100); Monocytes Absolute Auto 900 /uL (0-900); Monocytes Percent Auto 6.5 % (3-14); Neutrophils Absolute Auto 10600 /uL (1500-7000); Neutrophils Percent Auto 80.1 % (50-75); Platelet Count 210 X10^3/uL (150-400); Red Blood Cell Count 3.99 X10^6/uL (4.0-5.2); Red Cell Distribution Width 13.4 % (11.6-14.8); White Blood Cell Count 13.3 X10^3/uL (4.5-11.0)
[2022-06-21] MEDS: fentaNYL 100 MCG/2 ML INJ 50 MCG IV ×3 (02:40→09:30)
--- NOTE | 2022-06-21 08:07 | PM.OBHP.1 ---
OB HPI Date/Time Date of admission: 06/20/22 Date Patient Seen: 06/21/22 Time Patient Seen: 08:08 History of Present Condition Chief complaint: IUP, 37+5 wks EGA, IHCP w/ elevated LFT's, GBS Neg : 1 Para: 0 Estimated Date of Delivery: 07/07/22 Estimated Gestational Age (weeks): 37+5 Narrative: Avila Quintero is a 26 year old primigravida admitted at 37+ 4 weeks gestational age with elevated bile acids (48.9) and elevated transaminase levels (ALT 246, AST 239). Patient has been experiencing pruritus for the last 3 weeks but was only recently diagnosed with her bile acid level drawn on 06/16/2022. She is admitted at this time for cervical ripening and induction. course is largely been unremarkable with solid dating and appropriate milestones. Patient's is LGA with her most recent ultrasound performed yesterday showing her estimated gestational age based on weight at the 38+ 4 week [place] and a biophysical profile of 10/25. GBS is negative. Indications Indication for induction OB: other (Intrahepatic cholestasis of ) History of Present care: good care Dating criteria: LMP confirmed by 1st trimester US Ultrasounds: normal 1st trimester US and normal mid trimester US Abnormal ultrasound findings: Infant has been LGA since 20 week anatomy scan Obstetrical complications: other (Intrahepatic cholestasis of .) Preadmission Labs Blood type: A (+) positive -: Antibody screen: negative, GBS status: negative, HBsAG: negative, HIV: negative and RPR/VDLR: negative -: Chlamydia screen: not detected and Gonorrhea screen: not detected -: Rubella: not immune and Varicella: not immune HCT: 35.2 HCAB: negative PAP: Normal PFSH Medical History Scalp contusion Surgical History Anesthesia History of tonsillectomy and adenoidectomy (~2002) [place] teeth extracted (~2013) Family History Mother Hypothyroid Autoimmune disorder History of Graves' disease Grandmother Hypothyroid Pramod's disease Grandmother Lung cancer Breast cancer Brain cancer Skin cancer Brother High-functioning autism spectrum disorder Grandfather History of heart disease Social History marital status: number of children: 0 household members: spouse and family (16-year-old brother) lives independently: Yes housing: condominium pets and animals: Yes (1 dog) education level: vocational occupational status: employed current occupational exposures/hazards: No special isidro needs: No travel history: over 6 months ago seatbelt use: always water heater temp set < 120 deg: Yes working smoke detector in home: Yes fire extinguisher in home: Yes carbon monox detector in home: Yes firearms in home: Yes firearms unloaded and locked: Yes do you feel safe at home: Yes Smoking Status: Never smoker second hand exposure: No alcohol intake: former (rarely, 1-2/month prior to ) substance use type: does not use during the past year weight has: remained stable well-balanced diet: daily or most days daily servings fruits/ve-4 caffeine: Yes (1 cup black tea/day) Type(s) of exercise: regular exercise and weight lifting frequency: 3-4 times per week Meds Home Medications and Allergies Home Medications Medication Instructions Recorded Confirmed Type prenat.vits,jasiel,tzy-[id number] 1 tab PO DAILY 12/28/21 06/20/22 History Allergies Allergy/AdvReac Type Severity Reaction Status Date / Time No Known Drug Allergies Allergy Verified 06/20/22 21:11 OB Exam Vital signs Blood Pressure: 127/58 Pulse Rate: 74 Temperature: 97.5 F HENMT Head: normal to inspection, normocephalic and atraumatic Eyes General: appearance normal, both eyes and all related structures Resp Effort & Inspection: normal respiratory effort and able to speak in complete sentences Auscultation: clear to auscultation bilaterally Cardio Rate: regular rate Rhythm: regular rhythm Heart Sounds: S1 normal, S2 normal and no murmurs Extremities Lower extremity: Yes normal to inspection GI Inspection: normal to inspection Palpation: Yes soft and Yes no hepatosplenomegaly Uterus Location (Fundal Height): 37 Presentation: vertex Estimated Weight (lbs): 8 Objective Labs 06/20/22 20:30 Labs: Laboratory Results - last 24 hr 06/20/22 06/20/22 20:30 20:30 WBC 13.3 H RBC 3.99 L Hgb 11.9 L Hct 35.2 L MCV 88.3 MCH 29.8 MCHC 33.8 RDW 13.4 Plt Count 210 Neut % (Auto) 80.1 H Lymph % (Auto) 12.2 L [place] % (Auto) 6.5 Eos % (Auto) 0.7 L Baso % (Auto) 0.5 Neut # (Auto) 24857 H Lymph # (Auto) 1600 [place] # (Auto) 900 Eos # (Auto) 100 Baso # (Auto) 100 Blood Type A Positive Antibody Screen Negative Assessment and Plan Assessment and Plan Assessment and Plan narrative: ASSESSMENT 1. Intrauterine , 37+5 weeks EGA 2. Intrahepatic cholestasis of 3. Elevated transaminase levels 4. GBS negative status PLAN 1. Admit for ripening/induction 2. See admission orders
--- NOTE | 2022-06-21 09:50 | PM.OBPNLAB ---
Date/Time Date Patient Seen: 06/21/22 Time Patient Seen: 09:50 Pain Control Pain control: tolerating well and narcotic analgesia Pelvic Exam Dilation (cm): 2 Effacement (%): 80 station: -2 Amniotic membrane status: Intact Contractions Contraction pattern: Irregular Contraction phase: Resting Contraction intensity: Moderate Status status: Category l Heart Rate Baseline: 145 Monitor Accelerations: Present Monitor Decelerations: Variable (Mild, non-repetitive) Monitor Variability: Moderate Assessment and Plan Assessment: other (Ripening ongoing) Plan: begin patient augmentation Comments: OK for epidural. shara
[2022-06-21] MEDS: LACTATED RINGERS 1,000 ML 100 ML IV ×2 (09:59→13:11)
--- NOTE | 2022-06-21 10:16 | P.PCN_ITS ---
Regional Block Pre-procedure Procedure: Continuous Lumbar Epidural for L&D Attending OB provider: Niko Case PMH/ROS narrative: with cholestasis, induction. 37+ weeks ASA Class: II Labs: Hct 35.2 % (36-46) L 06/20/22 20:30 Plt Count 210 X10^3/uL (150-400) 06/20/22 20:30 Medications: Current Medications Generic Name Dose Route Start Last Admin Trade Name Freq PRN Reason Stop Dose Admin Calcium Carbonate 1,000 mg 06/20/22 19:45 Calcium Carbonate 500 Mg Tab PO Q4HR PRN Dyspepsia Carboprost Tromethamine 250 mcg 06/20/22 19:45 Carboprost 250 Mcg/Ml Ampul IM Q90M PRN Bleeding Fentanyl 50 mcg 06/20/22 19:45 06/21/22 09:30 Fentanyl 100 Mcg/2 Ml Inj IV 50 mcg Q1H PRN Administration Pain, Moderate (4-6) Oxytocin/Lactated Ringer's 30 unit in 500 mls @ 2 mls/hr 06/20/22 19:45 Oxytocin Premix IV TITRATE RHONA Protocol 2 MILLIUNIT/MIN Oxytocin/Lactated Ringer's 30 unit in 500 mls @ 200 mls/hr 06/20/22 19:45 Oxytocin Premix IV CONT PRN Bleeding Protocol Tranexamic Acid 1,000 mg/ 100 mls @ 200 mls/hr 06/20/22 19:45 Sodium Chloride IV NOW PRN Bleeding Lactated Ringer's 1,000 mls @ 100 mls/hr 06/20/22 19:45 06/21/22 09:59 Lactated Ringers IV 100 mls/hr CONT RHONA Administration Oxytocin/Lactated Ringer's 30 unit in 500 mls @ 1 mls/hr 06/21/22 10:06 Oxytocin Premix IV TITRATE RHONA Protocol 1 MILLIUNIT/MIN Methylergonovine Maleate 0.2 mg 06/20/22 19:45 Methylergonovine 0.2 Mg Tablet PO Q6HR PRN Heavy Bleeding Methylergonovine Maleate 0.2 mg 06/20/22 19:45 Methylergonovine 0.2 Mg/Ml Vial IM NOW PRN Bleeding Misoprostol 400 mcg 06/20/22 19:45 Misoprostol 200 Mcg Tablet SL NOW PRN Bleeding Misoprostol 800 mcg 06/20/22 19:45 Misoprostol 200 Mcg Tablet [place] NOW PRN Bleeding Naloxone HCl 0.2 mg 06/20/22 19:45 Naloxone 0.4 Mg/Ml Vial IV Q2MIN PRN Opiate Reversal Ondansetron HCl 4 mg 06/20/22 19:45 Ondansetron 4 Mg/2 Ml Inj IV Q4HR PRN Nausea And Vomiting Oxytocin 10 unit 06/20/22 19:45 Oxytocin 10 Unit/Ml Vial IM NOW PRN Bleeding Allergies: Allergies Allergy/AdvReac Type Severity Reaction Status Date / Time No Known Drug Allergies Allergy Verified 06/20/22 21:11 Procedure Insertion date: 06/21/22 Insertion time: 10:36 Prep/Local: betadine x3 and 1% lidocaine Interspace: L3-4 Patient position: sitting Needle: 18 gauge Ideal Implant (CSE: 27g pencan through hustead, clear CSF, 2.5mg MPF bupiv) Loss of resistance with: saline SHARYN at (cm): 6 Catheter placed at SKIN (cm): 12 Catheter in SPACE (cm): 6 Insertion: No CSF, No Blood, No Paresthesia with insertion, No Paresthesia with injection and No Test dose reaction Initial Medications TEST DOSE time: 10:57 TEST DOSE: 1.5% lidocaine with epinephrine 1:200k (mL): 3 BOLUS DOSE time: 10:42 BOLUS DOSE (mL): 4 BOLUS DOSE med: other (infusate) Infusion INFUSION: 0.125% bupivacaine and with fentanyl 2 mcg/mL Initial rate (mL/hr): 8 Subsequent interventions: PCEA at 8+4. @ 0802 4/5 Post-procedure Anesthesia time START: 10:21 Anesthesia time END: 08:12 Post-procedure Anesthesia Assessment: Yes CV function: HR/BP stable, Yes Resp function: RR/sat/airway adequate, Yes Pain control adequate, Yes Nausea & vomiting absent, Yes Mental status appropriate and No Anesthesia complications
[2022-06-21] MEDS: FENT 2MCG/ML BUPIV 0.125% EPI 200 MCG/100 ML PLAST..BAG 8 MCG EPIDURAL (10:45)
[2022-06-21] MEDS: OXYTOCIN PREMIX 30 UNIT/500 ML PLAST..BAG IV (10:49)
[2022-06-21] MEDS: diphenhydrAMINE 50 MG/ML VIAL 25 MG IV (14:20)
[2022-06-21] MEDS: ursodioL 300 MG CAPSULE PO ×2 (15:11→21:02)
[2022-06-21 17:21] VITALS: BP 127/58; PULSE 74; TEMP 36.4
--- NOTE | 2022-06-21 17:21 | PM.OBPNLAB ---
Date/Time Date Patient Seen: 06/21/22 Time Patient Seen: 17:22 Pain Control Pain control: tolerating well and epidural Pelvic Exam Dilation (cm): 2 Effacement (%): 80 station: -1 Amniotic membrane status: Ruptured Comments: AROM clear fluid, 1715 Contractions Contractions on admission: none Monitor mode: External Pitocin rate (mU/min): 10 Contraction frequency (min): 3 Contraction duration (min): 1 Contraction pattern: Irregular Contraction phase: Resting Contraction intensity: Moderate Status status: Category l Heart Rate Baseline: 125 Monitor Accelerations: Present Monitor Decelerations: Absent Monitor Variability: Moderate Assessment and Plan Assessment: induction ongoing Plan: continuous present management Comments: Anticipate .
[2022-06-21] MEDS: FENT 2MCG/ML BUPIV 0.125% EPI 200 MCG/100 ML PLAST..BAG 6 MCG EPIDURAL (19:05)
[2022-06-21] MEDS: diphenhydrAMINE 50 MG/ML VIAL IV (21:03)
--- NOTE | 2022-06-22 00:31 | PM.EVENT ---
Event Note Event Note (Rapid Response, Code, or fall): Called for pt c/o 7/10 pain despite multiple PCEA boluses. Upon arrival pt sitting in bed, stating pain now 3-4/10 with position change, perineal pressure with contractions. Assessed block level, bilateral T10. Bolused with 5 mL 1.5% lido with epi. now rating pain at 0/10
[2022-06-22] MEDS: CALCIUM CARBONATE 500 MG TAB 1000 MG PO (02:48)
[2022-06-22] MEDS: FENT 2MCG/ML BUPIV 0.125% EPI 200 MCG/100 ML PLAST..BAG 6 MCG EPIDURAL (03:47)
--- NOTE | 2022-06-22 04:35 | PM.EVENT ---
Event Note Event Note (Rapid Response, Code, or fall): Called for pt c/o pain despite using PCEA. On arrival pt states pain fluctuates between 2/10 and 9/10 with contractions in lower abdomen. Block assessed, bilateral T10 level. Pt dilated to 9 cm at this time. Bolus dose of 2.5 mL 1% lido and 2.5 mL 0.25% bupi given. Pt states feeling better, 3/10 pain.
--- NOTE | 2022-06-22 08:30 | P.PCNOB_ITS ---
Events: Other (Intrahepatic cholestasis of ) Labor & Delivery Delivery date: 06/22/22 Intrapartal Events: None Cervical ripening method: per Cervidil protocol Induction method: per pitocin protocol Delivery augmentation: rupture of membranes Delivery monitor: external FHT and external uterine Route of delivery: L&D Laceration Description: Periurethral - 1st Degree (Bilateral, no repair required) Estimated blood loss (mL): 200 Anesthesia Type: Epidural Complications: None Narrative: Following a 62 minute 2nd stage, the patient delivered spontaneously over an intact perineum a viable female weighing 3665 g (8 lb 1.3 oz) with an of 9/9. No shoulder dystocia or cord entanglement occurred. Skin to skin contact was initiated immediately following delivery and delayed cord clamping was performed. Once the umbilical cord was doubly clamped and cut, a cord blood sample was obtained for routine studies. The placenta was delivered with gentle traction on the umbilical cord and suprapubic countertraction and upon inspection the cord was seen to insert marginally but the placenta itself was intact. Intravenous Pitocin was initiated following delivery of the placenta and control of post delivery bleeding easily achieved. Inspection of the perineum and vaginal introitus showed only bilateral superficial first- degree periurethral abrasions but neither required repair for hemostasis. Sponge and needle counts were correct before and after delivery. Mother and tolerated the delivery process well and were in good condition at the end of the delivery process. Baby 1: Infant gender: Female Presentation: vertex Position: Right Occiput Anterior Placenta delivery description: Spontaneous and Abnormal Configuration (Marginal cord insertion) Cord Vessel Description: 3 Vessels score (1 min): 9 weight: 8 lb 1.279 oz
[2022-06-22 09:15] VITALS: TEMP 36.7
[2022-06-22] MEDS: IBUPROFEN 600 MG TABLET PO ×3 (09:15→23:03)
[2022-06-22 16:40] VITALS: TEMP 37.1
[2022-06-22] MEDS: ursodioL 300 MG CAPSULE PO ×2 (17:01→23:04)
[2022-06-22] MEDS: ACETAMINOPHEN 325 MG TABLET 650 MG PO (19:22)
[2022-06-22] MEDS: DERMOPLAST SPRAY 20% 60 ML 1 SPRAY TOP (19:23)
[2022-06-22] MEDS: DOCUSATE 100 MG CAPSULE PO (19:23)
[2022-06-22] MEDS: LANOLIN OINT 7 GM 1 APPLIC TOP (19:23)
[2022-06-23] MEDS: ACETAMINOPHEN 325 MG TABLET 650 MG PO ×2 (01:25→08:32)
[2022-06-23] MEDS: OXYCODONE IR 5 MG TABLET PO (03:07)
[2022-06-23 06:42] LABS: Add Manual Diff / Slide Review NO; Basophils Absolute Auto 100 /uL (0-100); Basophils Percent Auto 0.4 % (0-2); Eosinophils Absolute Auto 200 /uL (0-450); Eosinophils Percent Auto 1.1 % (2-4); Hematocrit 31.5 % (36-46); Hemoglobin 10.6 g/dL (12.0-16.0); Lymphocytes Absolute Auto 2200 /uL (1100-4500); Lymphocytes Percent Auto 14.9 % (25-40); Mean Corpuscular HGB Conc 33.6 % (30-36); Mean Corpuscular Hemoglobin 29.8 PG (26-34); Mean Corpuscular Volume 88.7 fL (80-100); Monocytes Absolute Auto 1000 /uL (0-900); Monocytes Percent Auto 6.9 % (3-14); Neutrophils Absolute Auto 11600 /uL (1500-7000); Neutrophils Percent Auto 76.7 % (50-75); Platelet Count 177 X10^3/uL (150-400); Red Blood Cell Count 3.56 X10^6/uL (4.0-5.2); Red Cell Distribution Width 13.3 % (11.6-14.8); White Blood Cell Count 15.1 X10^3/uL (4.5-11.0)
[2022-06-23 06:54] LABS: Alanine Aminotransferase 204 IU/L (<35); Albumin 2.8 g/dL (3.5-5.0); Alkaline Phosphatase 174 U/L (38-126); Aspartate Aminotransferase 113 IU/L (14-36); Bilirubin Total 0.4 mg/dL (0.2-1.3); Globulin 2.9 g/dL (1.7-4.1); HEMOLYSIS < 15 (0-50); Total Protein 5.7 g/dL (6.3-8.2)
[2022-06-23] MEDS: ursodioL 300 MG CAPSULE PO (08:33)
--- NOTE | 2022-06-23 09:49 | PM.OBDS.1 ---
Discharge Providers Provider Date of admission: 06/20/22 19:26 Discharge Date: 06/23/22 Consults: 06/20/22 19:45 Consult to Anesthesiology Urgent Comment: Dr. Nava Consulting Provider: Shefali Nava Reason for consultation: Epidural 06/23/22 08:27 Consult to Professional Driver Routine Comment: Discharge provider: Niko Case MD Summary Hospital Course Date Patient Seen: 06/23/22 Time Patient Seen: 09:49 Diagnoses: Intrauterine gestation, 37+ 6 weeks gestational age, delivered by spontaneous vaginal Intrahepatic cholestasis of Elevated transaminase levels Hospital Course: Avila was admitted on the evening of 06/20/2022 due to the recent diagnosis of intrahepatic cholestasis of with elevated transaminase levels. Cervical ripening was initiated with intravaginal Cervidil and IV Pitocin was initiated on the morning of 06/21/2022. Patient progressed well and an epidural was placed with AROM performed on the evening 06/21/2022. Patient delivered early on the morning of 06/22/2022 a viable female with Apgars of 9/9, and a weight of 3665 g (8 lb 1.3 oz). Following delivery both mother and baby have done extremely well with the mother experiencing prompt return of bowel and bladder function, she is ambulating independently, tolerating a regular diet, and her pain is well controlled with oral pain medications. She will be discharged at this time to home in an afebrile normotensive condition after counseling regarding precautionary symptoms, limitations of activity, medications, and plans for follow-up which will be in 6 weeks or as needed. Medications at discharge will include continuation of her daily vitamins, ursodiol 300 mg p.o. t.i.d. x7 days following delivery, oxycodone 5 mg p.o. Q 4-6 hours, and ibuprofen 600 mg p.o. q.6 hours as needed pain. Peripartum Data Delivery Method: Natural Vaginal Laceration Description: Periurethral - 1st Degree complications: none [place] 1: Gender: Female Status at Discharge Cognitive/behavioral status at discharge: oriented Functional status at discharge: independent ambulation Overall status at discharge: patient is progressing back to baseline Time Spent with Patient Time attestation: Total time spent providing and/or coordinating discharge services: Time spent: Less than 30 minutes Objective Labs 06/23/22 06:25 Labs: Laboratory Results - last 24 hr 04/06/23 04/06/23 06:25 06:25 WBC 15.1 H RBC 3.56 L Hgb 10.6 L Hct 31.5 L MCV 88.7 MCH 29.8 MCHC 33.6 RDW 13.3 Plt Count 177 Neut % (Auto) 76.7 H Lymph % (Auto) 14.9 L [place] % (Auto) 6.9 Eos % (Auto) 1.1 L Baso % (Auto) 0.4 Neut # (Auto) 94783 H Lymph # (Auto) 2200 [place] # (Auto) 1000 H Eos # (Auto) 200 Baso # (Auto) 100 Total Bilirubin 0.4 Conjugated Bilirubin 0.0 Unconjugated Bilirubin 0.0 AST 113 H ALT 204 H Alkaline Phosphatase 174 H Total Protein 5.7 L Albumin 2.8 L Globulin 2.9 Albumin/Globulin Ratio 1.0 Exam Const General: cooperative and comfortable Nutritional Appearance: average body habitus Orientation: alert and oriented x3 HENMT Head: normal to inspection, atraumatic and abrasion Ears: hearing grossly normal bilaterally Face and sinus: face symmetric Eyes General: appearance normal, both eyes and all related structures Conjunctivae: conjunctivae normal Sclera: sclerae normal EOM: EOM intact bilaterally Neck Neck: normal visual inspection Resp Effort & Inspection: normal respiratory effort and able to speak in complete sentences Auscultation: clear to auscultation bilaterally Cardio Rate: regular rate Rhythm: regular rhythm Heart Sounds: S1 normal, S2 normal and no murmurs GI Inspection: normal to inspection Palpation: soft, no hepatosplenomegaly and mass (Firm, NT fundus U-4) External Female Exam: other (No significant bleeding noted) Extrem General: no calf tenderness Psych Appearance: grossly normal Mental Status: mental status grossly normal Speech and Movement: speech and movement normal Mood: congruent mood Affect: normal affect Attitude: cooperative Thought Process: normal Thought Content: normal Judgment: judgment good Discharge Plan Discharge Plan Patient Disposition: Home Provider Discharge Comment: Please review the written instructions you received when you were discharged from the hospital. Your follow-up appointment with me will be scheduled for 6 weeks after your delivery and I look forward to seeing you then. If however in the meanwhile, you have any problems, questions, or concerns, please contact me either through the office phone at [phone], or via the patient portal. Discharge orders & Medications Prescriptions: New ibuprofen 600 mg Tablet 600 mg PO Q6HR PRN (Reason: Pain, Mild (1-3)) Qty: 60 2RF oxycodone 5 mg Tablet 5 mg PO Q4HR PRN (Reason: Pain, Moderate (4-6)) Qty: 10 0RF Continued prenat.vits,jasiel,ycq-rewq-djfqu Tablet 1 tab PO DAILY Medication counseling provided by Pharmacist: No Follow up/Referrals: Niko Case MD [Physician] - 6 Weeks (Please follow up with Dr. Case for your 6-week post- check-up on August 03 @0845AM. Please call the clinic with any questions or concerns. ) Discharge Health Status Multidrug resistant organism: No MDRO Diet/Activity/Treatments Diet: Diet as Tolerated Activity: As tolerated Other treatments: Tamw-guv-jpzcaev Tylenol may be used for additional pain relief. Jjif-yzy-subgnsg stool softeners and/or MiraLax may be used as needed for constipation. Skin/Wound/Dressing Care Report to your healthcare provider any signs of infection, such as:: chills, fever, increased pain, unusual drainage and unusual redness Dressing: N/A Visit Report/Discharge Packet Instructions: DI for Labor and Delivery, Vaginal , DI for and Nipple Soreness, DI for Prescription Opioid Use Stand Alone Forms: Discharge: Care Discharges patient from system. Discharge Date/Time: 06/23/22 11:00
[2022-06-23 10:24] VITALS: BP 101/68; PULSE 74; RESP 18; TEMP 36.9
== END 2022-06-23 11:00 | disposition home or self-care (01) | DRG 560 ==
PROVIDERS: Obstetrics & Gynecology; Admitting Provider Obstetrics & Gynecology; Referring Provider Obstetrics & Gynecology; Visit Provider Obstetrics & Gynecology
DX: O26.62 Liver and biliary tract disorders in childbirth (principal); Z3A.37 37 weeks gestation of pregnancy; Z37.0 Single live birth; O36.63X0 Maternal care for excessive fetal growth, third trimester, not applicable or unspecified; O26.613 Liver and biliary tract disorders in pregnancy, third trimester
CPT/HCPCS: 36415; 59025; 59050; 59409; 76819; 80076; 85025; 86850; 86900; 86901; G0378; G0379; J1200; J2590; J3010

== ENCOUNTER → 2022-12-21 08:05 | Outpatient (CLI) | payer OTHER, MEDICAID, SELFPAY ==
--- NOTE | 2022-12-21 08:06 | DI.US.S_ITS ---
PROCEDURE: US OB <= 14 WEEKS FETUS INDICATIONS: DATING AND VIABILITY OUTSIDE/PRIOR DATING DATA: Last menstrual period (LMP): 10/22/2022. LMP-based estimated date of delivery (RONY): 07/29/2023. First dating scan (date and location): 12/21/2022. Estimated date of delivery (RONY) from first dating scan: 07/30/2023. TECHNIQUE: Real-time scanning was performed of the fetus and maternal pelvic organs, with image documentation. Endovaginal scanning was also performed to better visualize the fetus and maternal ovaries. COMPARISON: None. FINDINGS: Embryo: Grand Tower-rump length of 1.9 cm corresponding to gestational age of 8 weeks 3 days. Heart rate: 160 beats per minute Small subchorionic hemorrhage measuring up to 0.9 cm. Maternal organs: Right ovarian corpus luteum. IMPRESSION: Single living intrauterine with gestational age of 8 weeks 3 days by crown-rump length corresponding to an ultrasound RONY of 07/30/2023, concordant with clinical dates. We strive to produce accurate, complete, and clear reports of imaging services. To assist us in improving patient care, this report was composed using standard report templates and voice recognition software. Therefore, it may contain abnormal punctuation, insertions and/or omissions. Occasional wrong-word or sound-alike substitutions may occur. Though we review the report and make efforts to correct it, we do recommend that the report be read carefully in proper context to recognize any text inaccuracies. Dictated by: Leon Sanchez M.D. on 12/21/2022 at 9:32 Approved by: Leon Sanchez M.D. on 12/21/2022 at 9:41
== END ==
PROVIDERS: Referring Provider Obstetrics & Gynecology; Visit Provider Obstetrics & Gynecology
DX: Z34.80 Encounter for supervision of other normal pregnancy, unspecified trimester (principal); Z3A.08 8 weeks gestation of pregnancy
CPT/HCPCS: 76801; 76830; 93975

== ENCOUNTER → 2023-01-24 11:35 | Outpatient (CLI) | payer OTHER, MEDICAID, SELFPAY ==
[2023-01-24 12:46] LABS: Add Manual Diff / Slide Review NO; Basophils Absolute Auto 0 /uL (0-100); Basophils Percent Auto 0.3 % (0-2); Eosinophils Absolute Auto 0 /uL (0-450); Eosinophils Percent Auto 0.5 % (2-4); Hemoglobin 12.8 g/dL (12.0-16.0); Lymphocytes Absolute Auto 1100 /uL (1100-4500); Lymphocytes Percent Auto 12.3 % (25-40); Mean Corpuscular HGB Conc 34.6 % (30-36); Mean Corpuscular Hemoglobin 29.7 PG (26-34); Mean Corpuscular Volume 85.7 fL (80-100); Monocytes Absolute Auto 600 /uL (0-900); Monocytes Percent Auto 6.2 % (3-14); Neutrophils Absolute Auto 7200 /uL (1500-7000); Neutrophils Percent Auto 80.7 % (50-75); Platelet Count 240 X10^3/uL (150-400); Red Blood Cell Count 4.31 X10^6/uL (4.0-5.2); Red Cell Distribution Width 14.8 % (11.6-14.8)
[2023-01-24 17:22] LABS: Hepatitis B Surface Antigen NEGATIVE s/c (NEGATIVE); Rubella Antibody IgG 8.4 IU/mL (>15)
[2023-01-24 17:26] LABS: HIV 1 & 2 Ab/Ag 4th Gen Combo NEGATIVE (NEGATIVE); Hep C Virus Ab w/Reflex Quant NEGATIVE s/c (NEGATIVE)
[2023-01-25 05:32] LABS: RPR Screen Non Reactive (Non Reactive)
[2023-01-25 12:46] LABS: Varicella IgG Antibody <135 index (Immune >165)
== END ==
PROVIDERS: Referring Provider Obstetrics & Gynecology; Visit Provider Obstetrics & Gynecology
DX: Z34.80 Encounter for supervision of other normal pregnancy, unspecified trimester (principal)
CPT/HCPCS: 36415; 80055; 86787; 86803; 86850; 86900; 86901; 87086; 87389

== ENCOUNTER → 2023-02-07 14:58 | Outpatient (CLI) | payer OTHER, MEDICAID, SELFPAY ==
[2023-02-07 15:45] LABS: Appearance Urine UA CLEAR; Bilirubin Urine UA NEGATIVE (NEGATIVE); Color Urine UA YELLOW; Glucose Urine UA NEGATIVE (Negative); Ketones Urine UA NEGATIVE (NEGATIVE); Leukocyte Esterase Urine UA TRACE (NEGATIVE); Nitrite Urine UA NEGATIVE (Negative); Occult Blood Urine UA NEGATIVE (Negative); Protein Urine UA NEGATIVE (Negative); Specific Gravity Urine UA >=1.030 (1.000-1.035)
[2023-02-07 15:49] LABS: pH Urine UA 5.5 (4.5-8.0)
[2023-02-07 16:02] LABS: Bacteria Urine None Seen; Culture Indicated Urine Cult Not Indicated; RBC Urine None Seen (0-5/HPF); Squamous Epithelial Cell Urine 10-30 /HPF (0-5/HPF); WBC Urine 5-10/HPF (0-5/HPF)
== END ==
PROVIDERS: Referring Provider Obstetrics & Gynecology; Visit Provider Obstetrics & Gynecology
DX: Z34.90 Encounter for supervision of normal pregnancy, unspecified, unspecified trimester (principal); R30.0 Dysuria
CPT/HCPCS: 36415; 81001; 87086

== ENCOUNTER → 2023-02-21 16:48 | Outpatient (CLI) | payer OTHER, MEDICAID, SELFPAY ==
[2023-02-24 21:57] LABS: AFP, Serum 22.5 ng/mL (.); Calc Gestational Age Ultrasound (.); Estriol, Free 1.18 ng/mL (.); Inhibin A, MoM 3.44 (.); Maternal Ethnicity Caucasian (.); Maternal Weight 211 lbs (.); Number of Fetuses No (.); OSBR Risk 1 IN 10000 (.); Results Report (.); Test Results *Screen Positive* (.); hCG, MoM 5.99 (.)
== END ==
PROVIDERS: Referring Provider Obstetrics & Gynecology; Visit Provider Obstetrics & Gynecology
DX: Z34.82 Encounter for supervision of other normal pregnancy, second trimester (principal); Z3A.17 17 weeks gestation of pregnancy; R82.998 Other abnormal findings in urine
CPT/HCPCS: 36415; 82105; 82677; 84702; 86336; 87086

== ENCOUNTER → 2023-04-19 11:20 | Outpatient (CLI) | payer OTHER, MEDICAID, SELFPAY ==
[2023-04-19 13:26] LABS: Hematocrit 32.2 % (36-46); Hemoglobin 11.1 g/dL (12.0-16.0)
[2023-04-19 13:45] LABS: GTT (PREG) 1 Hour PP 50gm Dose 76 mg/dL (76-139)
== END ==
PROVIDERS: Referring Provider Obstetrics & Gynecology; Visit Provider Obstetrics & Gynecology
DX: Z34.82 Encounter for supervision of other normal pregnancy, second trimester (principal); Z3A.26 26 weeks gestation of pregnancy
CPT/HCPCS: 36415; 82950; 85014; 85018

== ENCOUNTER → 2023-05-25 12:49 | Outpatient (CLI) | payer OTHER, MEDICAID, SELFPAY ==
[2023-05-25 13:45] LABS: Alanine Aminotransferase 49 IU/L (<35); Albumin 3.6 g/dL (3.5-5.0); Albumin Globulin Ratio 1.1 (1.0-2.8); Alkaline Phosphatase 129 U/L (38-126); Aspartate Aminotransferase 36 IU/L (14-36); Bilirubin Total 0.6 mg/dL (0.2-1.3); Bilirubin Unconjugated 0.2 mg/dL (0.0-1.1); Globulin 3.3 g/dL (1.7-4.1); HEMOLYSIS < 15 (0-50); Total Protein 6.9 g/dL (6.3-8.2)
[2023-05-27 12:41] LABS: Bile Acids 30.3 umol/L (0.0-10.0)
== END ==
LOC: LAB 12:50
PROVIDERS: Referring Provider Obstetrics & Gynecology; Visit Provider Obstetrics & Gynecology
DX: O99.719 Diseases of the skin and subcutaneous tissue complicating pregnancy, unspecified trimester (principal); Z87.59 Personal history of other complications of pregnancy, childbirth and the puerperium; Z87.19 Personal history of other diseases of the digestive system; L29.9 Pruritus, unspecified
CPT/HCPCS: 36415; 80076; 82239

== ENCOUNTER 2023-06-06 11:28 | Outpatient (CLI) | payer OTHER, MEDICAID, SELFPAY ==
[2023-06-06 12:37] LABS: Alanine Aminotransferase 121 IU/L (<35); Albumin 3.6 g/dL (3.5-5.0); Albumin Globulin Ratio 1.1 (1.0-2.8); Alkaline Phosphatase 154 U/L (38-126); Aspartate Aminotransferase 62 IU/L (14-36); Bilirubin Total 0.6 mg/dL (0.2-1.3); Bilirubin Unconjugated 0.2 mg/dL (0.0-1.1); Globulin 3.3 g/dL (1.7-4.1); HEMOLYSIS < 15 (0-50); Total Protein 6.9 g/dL (6.3-8.2)
[2023-06-08 12:52] LABS: Bile Acids 20.1 umol/L (0.0-10.0)
== END 2023-06-06 12:12 | disposition home or self-care (01) ==
LOC: LABOR 11:43 → OB 06-09 12:02
PROVIDERS: Referring Provider Obstetrics & Gynecology; Visit Provider Obstetrics & Gynecology
DX: O26.643 Intrahepatic cholestasis of pregnancy, third trimester (principal); Z3A.32 32 weeks gestation of pregnancy
CPT/HCPCS: 36415; 59025; 80076; 82239; G0378; G0379

== ENCOUNTER 2023-06-13 09:30 | Outpatient (CLI) | payer OTHER, MEDICAID, SELFPAY ==
[2023-06-13 10:27] LABS: Alanine Aminotransferase 102 IU/L (<35); Albumin 3.5 g/dL (3.5-5.0); Alkaline Phosphatase 160 U/L (38-126); Aspartate Aminotransferase 57 IU/L (14-36); Bilirubin Total 0.6 mg/dL (0.2-1.3); Bilirubin Unconjugated 0.2 mg/dL (0.0-1.1); Globulin 3.4 g/dL (1.7-4.1); HEMOLYSIS < 15 (0-50); Total Protein 6.9 g/dL (6.3-8.2)
[2023-06-14 21:36] LABS: Bile Acids 17.2 umol/L (0.0-10.0)
== END 2023-06-13 10:35 | disposition home or self-care (01) ==
LOC: LABOR 10:28 → OB 06-14 12:03
PROVIDERS: Referring Provider Obstetrics & Gynecology; Visit Provider Obstetrics & Gynecology
DX: O26.643 Intrahepatic cholestasis of pregnancy, third trimester (principal); Z3A.33 33 weeks gestation of pregnancy
CPT/HCPCS: 59025; 80076; 82239; G0378; G0379

== ENCOUNTER 2023-06-20 11:03 | Outpatient (CLI) | payer OTHER, MEDICAID, SELFPAY ==
[2023-06-20 12:18] LABS: Alanine Aminotransferase 118 IU/L (<35); Albumin 3.5 g/dL (3.5-5.0); Alkaline Phosphatase 160 U/L (38-126); Aspartate Aminotransferase 61 IU/L (14-36); Bilirubin Total 0.5 mg/dL (0.2-1.3); Bilirubin Unconjugated 0.2 mg/dL (0.0-1.1); Globulin 3.4 g/dL (1.7-4.1); HEMOLYSIS < 15 (0-50); Total Protein 6.9 g/dL (6.3-8.2)
[2023-06-22 10:09] LABS: Bile Acids 23.2 umol/L (0.0-10.0)
== END 2023-06-20 12:21 | disposition home or self-care (01) ==
LOC: LABOR 12:09 → OB 06-23 14:28
PROVIDERS: Referring Provider Obstetrics & Gynecology; Visit Provider Obstetrics & Gynecology
DX: Z34.83 Encounter for supervision of other normal pregnancy, third trimester (principal); Z3A.34 34 weeks gestation of pregnancy
CPT/HCPCS: 36415; 59025; 80076; 82239; G0378; G0379

== ENCOUNTER 2023-06-24 23:05 | Inpatient (IN) | payer OTHER, MEDICAID, SELFPAY ==
--- NOTE | 2023-06-25 | PATH_ITS ---
[facility] Accession Number: [id number] No. of containers..01 Tissue . 01 Material submitted: . placenta - PLACENTA . 01 Diagnosis: PLACENTA: Placental parenchyma: Weight: 520 grams. Chorionic villous maturation is variable with patchy regions of immature chorionic villi. Pnngjwvr-yy-kwucem inter and intravillous fibrin is present. No definite villitis identified. Patchy, small infarcts (up to 8 mm in greatest dimension) involve less than 10% of the surface. Multiple infarcts (up to 5 mm) involve the maternal surface with patchy calcifications. . Membranes: Insert maginally. Ruptured 5.2 cm from the placental disc margin. No villitis identified. . Umbilical cord: 19.5 cm in length. Insert centrally. Three vessels present. No funisitis identified. MRV 06/29/2023 1619 Local . 01 Electronically signed: . Rody Rodriges MD, Pathologist NPI- [id number] . 01 Gross description: . Received in formalin with two identifiers and placenta, is an irregular [place]on placenta with a trimmed weight of 520 grams and measuring 15.5 x 13.1 by approximately 4.3 cm with no accessory lobes identified. . The membranes are blanco and translucent with blanco areas of thickening occupying approximately 20% of the membrane surface. They insert at the margin and have a point of rupture 5.2 cm from the nearest placental disc edge. . The cord measures 19.5 cm in length by 1.0 cm in average diameter with a leftward coil and an index of approximately 1 twist per 5 cm. The cord inserts centrally, and sectioning reveals unremarkable trivascular architecture with no knots or lesions identified. . The surface is blue-abdul with normal arborizing vasculature and a blanco firm lesion measuring 0.8 x 0.5 cm occupying less than 10% of the surface. . The maternal surface is irregular and friable, but apparently complete. Upon manipulation, several areas of cotyledons separate to reveal the surface. Multiple blanco nodules range from 0.3 to 0.5 cm in greatest dimension and appear to be grossly attached to the vasculature. Sectioning reveals a red, spongy cut surface with no additional lesions identified. . Key Operator sections are submitted as follows: A1: Membrane roll and placental end of cord. A2: Membrane roll and end of cord. A3: surface discoloration. A4: Blanco nodules. A5-A7: Central presumed full thickness unremarkable sections. ([id number]) /MRV 06/27/2023 1206 Local . 01 Pathologist provided ICD-10: O43.90 . 01 CPT . 066037 Specimen Comment: A courtesy copy of this report has been sent to [facility] Performed at: 01 [facility] [address] [place] [address], [place], [place] [id number] MD Rubén Faustin MD Phone: [phone]
--- NOTE | 2023-06-25 00:06 | DI.US.S_ITS ---
PROCEDURE: US OB BIOPHYSICAL PROFILE INDICATIONS: UTERINE TENDERNESS OUTSIDE/PRIOR DATING DATA: Last menstrual period (LMP): 10/22/22. LMP-based estimated date of delivery (RONY): 07/29/23. Estimated date of delivery (RONY) from first dating scan: 07/29/23. The calculations are made using the above RONY. TECHNIQUE: Real-time scanning was performed of the fetus for biophysical profile, with image documentation. Color and pulse Doppler interrogation was also performed of the umbilical artery near its insertion into the placenta. Endovaginal scanning: Not needed. COMPARISON: [facility], OB BIOPHYSICAL PROFILE, 06/20/2022, 13:24. FINDINGS: General: A single living intrauterine gestation is present. Presentation: Vertex. Placenta: Placental position is posterior , without previa. Amniotic fluid index: 18.3 cm, normal range is 5-24 cm. Single deepest vertical pocket is 6.9 cm. heart rate: 139 beats per minute. Biophysical profile: Tone: 2 points. Movement: 2 points. Respiration: 2 points. Largest pocket of fluid: 2 points. IMPRESSION: Normal biophysical profile. We strive to produce accurate, complete, and clear reports of imaging services. To assist us in improving patient care, this report was composed using standard report templates and voice recognition software. Therefore, it may contain abnormal punctuation, insertions and/or omissions. Occasional wrong-word or sound-alike substitutions may occur. Though we review the report and make efforts to correct it, we do recommend that the report be read carefully in proper context to recognize any text inaccuracies. Dictated by: Jose Antonio Hutson M.D. on 06/25/2023 at 1:22 Approved by: Jose Antonio Hutson M.D. on 06/25/2023 at 1:25
[2023-06-25] MEDS: fentaNYL 100 MCG/2 ML INJ 25 MCG IV (00:07)
[2023-06-25 00:15] LABS: Add Manual Diff / Slide Review NO; Basophils Absolute Auto 0 /uL (0-100); Basophils Percent Auto 0.1 % (0-2); Eosinophils Absolute Auto 100 /uL (0-450); Eosinophils Percent Auto 0.3 % (2-4); Hemoglobin 11.1 g/dL (12.0-16.0); Lymphocytes Absolute Auto 1200 /uL (1100-4500); Lymphocytes Percent Auto 8.2 % (25-40); Mean Corpuscular HGB Conc 33.7 % (30-36); Mean Corpuscular Hemoglobin 27.3 PG (26-34); Mean Corpuscular Volume 80.9 fL (80-100); Monocytes Absolute Auto 700 /uL (0-900); Neutrophils Absolute Auto 12800 /uL (1500-7000); Neutrophils Percent Auto 86.4 % (50-75); Platelet Count 218 X10^3/uL (150-400); Red Blood Cell Count 4.08 X10^6/uL (4.0-5.2); Red Cell Distribution Width 14.9 % (11.6-14.8); White Blood Cell Count 14.8 X10^3/uL (4.5-11.0)
[2023-06-25 00:26] LABS: Alanine Aminotransferase 121 IU/L (<35); Albumin 3.6 g/dL (3.5-5.0); Alkaline Phosphatase 192 U/L (38-126); Aspartate Aminotransferase 74 IU/L (14-36); BUN Creatinine Ratio 28.6 (6-22); Bilirubin Total 0.6 mg/dL (0.2-1.3); Blood Urea Nitrogen 18 mg/dL (7-17); Calcium 8.9 mg/dL (8.4-10.2); Carbon Dioxide 21 mmol/L (22-32); Chloride 106 mmol/L (98-107); Estimated Glomerular Filt Rate > 60 mL/min (>60); Globulin 3.5 g/dL (1.7-4.1); Glucose 103 mg/dL (70-100); HEMOLYSIS < 15 (0-50); Potassium 3.7 mmol/L (3.4-5.1); Sodium 134 mmol/L (137-145); Total Protein 7.1 g/dL (6.3-8.2)
--- NOTE | 2023-06-25 02:03 | PM.OBHP.IH.1 ---
OB HPI Date/Time Date of admission: 06/24/23 Date Patient Seen: 06/24/23 Time Patient Seen: 23:40 History of Present Condition Chief complaint: abd pain RONY Calculator Estimated Delivery Date Method Current WG Current Estimate 07/29/23 LMP (Certain) 35w 1d Other Estimates 07/30/23 Ultrasound #1 35w 0d Estimated Gestational Age (weeks): 35w 0d : 2 Para: 1 Narrative: This evening at roughly 5 30-6 o'clock patient developed gradual onset uterine pain and tenderness. It was right upper quadrant in location. It became progressively worse with time. She would noted some Bradley Novak associated with this. She states she took a shower took some antacids without any kind of relief. She has no history of any prior episodes of pain similar to this. She denies any trauma to the uterus. She is noted good motion. She denies any vaginal bleeding or fluid leakage. She does have a history of having cholestasis with her 1st as well as this she was delivered at 37 weeks the 1st time around she has been placed on Lucio call for elevated bile salts as well as liver function tests. Her total bili has remained normal. She had early visits with ultrasound at 8 weeks which confirmed her EDC. Laboratories today show a white count of 14,000 her platelets are in the 200s her hemoglobin is 11. Her AST and ALT are both elevated. Reviewing her bile salts show them also to be elevated. Ultrasound performed here in labor and delivery showed a biophysical profile of 8/8 she her ALVIN was 18. Placenta was posterior and unable to be visualized. She is continued to have uterine tenderness. She is now developing contractions which are running about every 1-1/2 minutes. care: good care Dating criteria OB: LMP confirmed by 1st trimester US Ultrasounds: normal 1st trimester US and normal mid trimester US Abnormal ultrasound findings: Patient had an amniocentesis BP formed because of a abnormal cell free DNA. Obstetrical complications: other (Cholestasis of .) External History : 2 Para: 1 Estimated Date of Delivery: 07/29/23 Narrative: Previous was complicated with cholestasis requiring induction at 37 weeks with cervical ripening. Indications Operative indications ( section): abruptio placenta (Patient has uterine tenderness is suspicious for uterine abruption. She is having contractions every minute and a half.) Preadmission Labs Last OB Lab Results: Blood Type A Positive 01/24/23 11:56 Antibody Screen Negative 01/24/23 11:56 Hematocrit 33.0 % (36-46) L 06/25/23 00:00 Hemoglobin 11.1 g/dL (12.0-16.0) L 06/25/23 00:00 Hepatitis B Surface Antigen Negative s/c (NEGATIVE) 01/24/23 11:56 Hepatitis C Antibody Negative s/c (NEGATIVE) 01/24/23 11:56 Rubella Antibody 8.4 IU/mL (>15) L 01/24/23 11:56 Varicella-Zoster IgG Antibody <135 index (Immune >165) L 01/24/23 11:56 Glucose 1 Hour 76 mg/dL (76-139) 04/19/23 11:30 Group B Streptococcus (PCR) Neg for grp b strep 06/09/22 11:39 -: Chlamydia screen: negative, Gonorrhea screen: negative and Urine: negative External Labs -: Urine: negative Prior (ies) Past Pregnancies Del. Date GA/Weeks Labor Lgth Wt Sex Route Outcome Anesthesia Place Delv Breastfeed Preg Comp Name 06/22/22 37 5 8 lb 1 oz Female vaginal live - full term epidural IH 5+ months other Erasmo Delivery Date: 06/22/22 Last Updated by: Abby Page RN cholestasis, gall stones Evaluation Evaluation Baseline heart rate: 135 monitor accelerations: Present Monitor Decelerations: Absent Contraction Frequency (minutes): 1 Uterine Contraction Intensity: Moderate Category of Tracing: Reactive Status: Category l Dilation (cm): 1 Effacement (%): 50 Effacement: 40-50% Position of cervix: mid Consistency: medium PFSH Medical History (Updated 06/20/23 @ 11:20 by Niko Case MD) History of cholestasis during depression Cholestasis during Scalp contusion Surgical History Anesthesia [place] teeth extracted (~2013) History of tonsillectomy and adenoidectomy (~2002) Family History Mother Hypothyroid Autoimmune disorder History of Graves' disease Grandmother Hypothyroid Pramod's disease Grandmother Lung cancer Breast cancer Brain cancer Skin cancer Brother High-functioning autism spectrum disorder Grandfather History of heart disease Social History marital status: number of children: 1 household members: spouse and children lives independently: Yes caregiver/support person: Yes housing: condominium (will be moving to a house in Mar) pets and animals: Yes (1 dog) education level: vocational 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) current occupational exposures/hazards: No special isidro needs: No travel history: recent (local/domestic only) seatbelt use: always helmet use: Yes water heater temp set < 120 deg: Yes working smoke detector in home: Yes fire extinguisher in home: Yes carbon monox detector in home: Yes firearms in home: Yes firearms unloaded and locked: Yes do you feel safe at home: Yes Smoking Status: Never smoker second hand exposure: No alcohol intake: former (not since before 1st ) substance use type: marijuana (edibles, not while /) during the past year weight has: other (daughter is only 6 months old) well-balanced diet: daily or most days daily servings fruits/ve-4 caffeine: Yes (1 cup black tea/day) Type(s) of exercise: walking and weight lifting frequency: 3-4 times per week Meds Home Medications and Allergies Home Medications Medication Instructions Recorded Confirmed Type prenat.vits,jasiel,bzm-zycq-sexly 1 tab PO DAILY 12/28/21 06/20/23 History breast pump #1 ea 08/03/22 06/20/23 Rx ondansetron 4 mg disintegrating 4 mg PO Q6H PRN nausea and 01/27/23 06/20/23 Rx tablet vomiting #20 tabs ursodiol 300 mg capsule 300 mg PO TID #90 caps 05/25/23 06/20/23 Rx hydroxyzine HCl 25 mg tablet 25 mg PO QID PRN itching #60 tabs 06/15/23 06/20/23 Rx Allergies Allergy/AdvReac Type Severity Reaction Status Date / Time No Known Drug Allergies Allergy Verified 06/20/23 10:26 OB Exam Vital signs Blood Pressure: 120/60 Pulse Rate: 80 HENMT Head: normal to inspection Resp Effort & Inspection: normal respiratory effort, able to speak in complete sentences and respiratory distress Cardio Rate: regular rate Rhythm: regular rhythm Heart Sounds: S1 normal and S2 normal Extremities Walt's Sign: Right (Negative) Presentation: vertex Objective Labs 06/25/23 00:00 06/25/23 00:00 Labs: Laboratory Results - last 24 hr 06/25/23 00:00 WBC 14.8 H RBC 4.08 Hgb 11.1 L Hct 33.0 L MCV 80.9 MCH 27.3 MCHC 33.7 RDW 14.9 H Plt Count 218 Neut % (Auto) 86.4 H Lymph % (Auto) 8.2 L [place] % (Auto) 5.0 Eos % (Auto) 0.3 L Baso % (Auto) 0.1 Neut # (Auto) 27495 H Lymph # (Auto) 1200 [place] # (Auto) 700 Eos # (Auto) 100 Baso # (Auto) 0 Sodium 134 L Potassium 3.7 Chloride 106 Carbon Dioxide 21 L BUN 18 H Creatinine 0.63 Estimated GFR > 60 BUN/Creatinine Ratio 28.6 H Glucose 103 H Calcium 8.9 Total Bilirubin 0.6 AST 74 H ALT 121 H Alkaline Phosphatase 192 H Total Protein 7.1 Albumin 3.6 Globulin 3.5 Albumin/Globulin Ratio 1.0 Assessment and Plan Assessment and Plan Assessment and Plan narrative: 1. 27-year-old EDC 28 July, 35 weeks 0 days To history of cholestasis of on [place] 3 possible abruption. Patient has uterine tenderness as well as pain 8 to 10/10. She is having contractions at this point. At this point I do not believe she is transferable. The possibility of an abruption was reviewed with the patient she is also aware that this is not always present but because of the inability to transfer her with a suspected diagnosis it was decided to proceed on with a urgent section. Risks and benefits were explained to the patient including those but not limited to bleeding, infection, injury of the pelvic organs. She is aware of the potential for DVT with PE. She is also aware of the possibility of postop adhesions which could cause pain bowel obstruction as well as infertility. She is aware that should the baby need to it may be transferred to an NICU.
[2023-06-25 02:22] VITALS: BP 120/60; PULSE 80
[2023-06-25 02:32] VITALS: BP 123/60
[2023-06-25] MEDS: CITRIC ACID/SODIUM CITRATE 15 ML SOLUTION 30 ML PO (02:34)
[2023-06-25 02:39] LABS: Fibrinogen 447 mg/dL (238-498); INR 0.9 (0.9-1.3); Prothrombin Time 10.8 SECONDS (9.4-12.5)
[2023-06-25 02:42] LABS: PTT Partial Thromboplastin Tim 29 SECONDS (25.1-36.5)
--- NOTE | 2023-06-25 02:51 | SUR.OPER ---
Supine on Padded OR bed, head on pillow, safety belt at thigh, arms secured on padded arm boards at <90 degrees abduction. Bump under right buttock. Legs uncrossed with pillow under knees, gel pad to heels, tape over blanket to lower legs.
[2023-06-25] MEDS: CEFAZOLIN 2 GM/100 ML PREMIX 100 ML IV (03:06)
[2023-06-25] MEDS: ACETAMINOPHEN IV 1,000 MG/100 ML VIAL 400 MG IV (03:42)
--- NOTE | 2023-06-25 03:49 | SUR.OPER ---
TIME OF 0322.
[2023-06-25] MEDS: LACTATED RINGERS 1,000 ML 1000 ML IV (03:50)
[2023-06-25 04:10] VITALS: BP 135/107; PULSE 91; RESP 18; TEMP 36.3; O2SAT 100
--- NOTE | 2023-06-25 04:14 | PM.OBCS.1 ---
Operative Date/Time/Diagnoses Date of procedure: 06/25/23 Time of procedure: 03:14 Pre-op diagnosis: 1. 27-year-old at 35 weeks 2. History of cholestasis of 3. Possible abruption Post-op diagnosis: same Procedure & Clinicians Same procedure as scheduled: Yes Surgeon: Rigoberto Treviño Click Yes if Unassisted: Yes Grinder Set Up Operator Surface: Niko Case Reason for Grinder Set Up Operator Surface: Grinder Set Up Operator Surface was necessary to provide retraction exposure and fundal pressure. Anesthesia Type: Spinal Operative Notes Findings: Live male Apgars 4/5/7 Cord gases, arterial 7.235, venous 7.241 Vertex presentation left occiput transverse nuchal cord x2 Clear amniotic fluid Closure Type: primary Specimen(s): cord pH and placenta Intraoperative meds administered: Acetaminophen and Ketorolac Estimated Blood Loss (mL): 800 Blood products transfused: none Procedure in detail: Patient is taken to the operating room which time she was identified. An spinal anesthetic was placed without difficulty. She was placed in the supine position with a roll under the right hip. A Thorne catheter was placed under sterile conditions. At this point she was prepped and draped in the usual fashion. A time-out was performed and confirmation of SCDs, antibiotics as well as Peds being ready for the procedure. At this point a Pfannenstiel incision was carried down through the subcutaneous tissue to the fascia the fascia was incised transversely then utilizing blunt and sharp dissection it was freed from the rectus abdominis and pyramidalis. The rectus was split along the midline peritoneum was entered high to decrease the risk of injury to the bladder or uterine. A low-transverse uterine incision was accomplished using a 10. Blade bandage scissors as well as finger spread technique. The membranes were then ruptured clear amniotic fluid was encountered. The head was noted to be left occiput transverse as well as nuchal cord x2. This was reduced the was delivered without difficulty. The cord was stripped and then clamped. It was divided and the infant was handed to the pediatric team that was standing by. At this point a segment of cord was clamped and set aside for cord gases. Cord blood was then sent. The placenta was then manually removed it was noted to be posterior. There was some difficulty removing it particularly from the left cornual area. The uterus was exteriorized wrapped in a moist lap and then cleansed the internal portion with a dry lap. The lower uterine segment was then closed using a running locking suture of 0. Vicryl with an imbricating layer of 0. Vicryl. This had to be reinforced on the right-hand side with isvipt-up-avdoqj of 2-0 Vicryl as well as the midline with a yuayxo-xz-emzum of 2-0 Vicryl. The incision was packed uterus tipped forward and the cul-de-sac was irrigated and suctioned clear of clot. The uterus was then placed back in the abdominal cavity the incision was inspected no further bleeding was noted. The gutters were cleaned and irrigated using normal saline. The incision once again inspected and no bleeding was noted. The peritoneum was closed utilizing 2-0 Vicryl. The rectus was reapproximated using interrupted whgrgo-kd-xgyamd of 2-0 Vicryl. Subcutaneous tissue was irrigated and then closed with 2 0 Vicryl the skin itself was closed using 4-0 Monocryl subcuticular. At this point the wound was clamped cleansed and dried and Mastisol was applied following this Steri-Strips were applied. A sterile occlusive dressing was placed. Patient tolerated procedure well and was taken recovery in stable condition. Sponge and needle counts were correct. Complications: none [place] Baby 1: Gender: Male Presentation: vertex (Left occiput transverse) Position: Left Occiput Transverse Placental Delivery Description: Manual Removal Cord Vessel Description: 3 Vessels, Nuchal Cord (X2) and Reduced score (1 min): 4 score (5 min): 5 score (10 min): 7 Post-operative Condition: stable Disposition: observation Aftercare: routine postop
--- NOTE | 2023-06-25 04:24 | SUR.PHASEI ---
Patient directly to OB unit post-procedure in stable condition. Bedside report given to L&D nurse by Anesthesia.
[2023-06-25] MEDS: diphenhydrAMINE 50 MG/ML VIAL 25 MG IV (05:16)
[2023-06-25] MEDS: ONDANSETRON 4 MG/2 ML INJ IV (08:12)
[2023-06-25] MEDS: ACETAMINOPHEN 325 MG TABLET 650 MG PO ×3 (09:32→21:07)
[2023-06-25] MEDS: KETOROLAC 30 MG/ML VIAL IV ×3 (09:32→21:07)
[2023-06-25] MEDS: hydrOXYzine HCL 25 MG TABLET PO ×2 (10:12→16:13)
[2023-06-25] MEDS: METOCLOPRAMIDE 10 MG/2 ML INJ IV (11:50)
[2023-06-25 14:14] LABS: Add Manual Diff / Slide Review NO; Basophils Absolute Auto 0 /uL (0-100); Basophils Percent Auto 0.3 % (0-2); Eosinophils Absolute Auto 0 /uL (0-450); Hematocrit 30.5 % (36-46); Hemoglobin 10.2 g/dL (12.0-16.0); Lymphocytes Absolute Auto 400 /uL (1100-4500); Lymphocytes Percent Auto 3.5 % (25-40); Mean Corpuscular HGB Conc 33.4 % (30-36); Mean Corpuscular Hemoglobin 27.5 PG (26-34); Mean Corpuscular Volume 82.3 fL (80-100); Monocytes Absolute Auto 400 /uL (0-900); Monocytes Percent Auto 3.3 % (3-14); Neutrophils Absolute Auto 11000 /uL (1500-7000); Neutrophils Percent Auto 92.9 % (50-75); Platelet Count 197 X10^3/uL (150-400); Red Cell Distribution Width 14.4 % (11.6-14.8); White Blood Cell Count 11.9 X10^3/uL (4.5-11.0)
[2023-06-25 14:16] LABS: Appearance Urine UA CLEAR; Bilirubin Urine UA NEGATIVE (NEGATIVE); Color Urine UA YELLOW; Glucose Urine UA NEGATIVE (Negative); Ketones Urine UA NEGATIVE (NEGATIVE); Leukocyte Esterase Urine UA NEGATIVE (NEGATIVE); Nitrite Urine UA POSITIVE (Negative); Occult Blood Urine UA NEGATIVE (Negative); Protein Urine UA 1+ (Negative); Specific Gravity Urine UA >=1.030 (1.000-1.035)
[2023-06-25 14:24] LABS: pH Urine UA 6.5 (4.5-8.0)
[2023-06-25 14:25] LABS: Bacteria Urine None Seen; RBC Urine None Seen (0-5/HPF); Squamous Epithelial Cell Urine 0-1 /HPF (0-5/HPF); Urine Volume 10mL (spun); WBC Urine 1-5/HPF (0-5/HPF)
[2023-06-25 14:26] LABS: Amorphous Sediment Urine 2+; Culture Indicated Urine Specimen Cultured
[2023-06-25 14:41] LABS: Alanine Aminotransferase 116 IU/L (<35); Albumin 3.2 g/dL (3.5-5.0); Albumin Globulin Ratio 1.1 (1.0-2.8); Alkaline Phosphatase 154 U/L (38-126); Aspartate Aminotransferase 82 IU/L (14-36); BUN Creatinine Ratio 32.8 (6-22); Bilirubin Total 0.7 mg/dL (0.2-1.3); Blood Urea Nitrogen 20 mg/dL (7-17); Calcium 8.6 mg/dL (8.4-10.2); Carbon Dioxide 26 mmol/L (22-32); Chloride 101 mmol/L (98-107); Estimated Glomerular Filt Rate > 60 mL/min (>60); Glucose 92 mg/dL (70-100); HEMOLYSIS < 15 (0-50); Potassium 3.9 mmol/L (3.4-5.1); Sodium 131 mmol/L (137-145); Total Protein 6.2 g/dL (6.3-8.2)
--- NOTE | 2023-06-25 15:45 | P.PNOB_ITS ---
Subjective - OB Subjective Patient comments: pain well controlled (1-2/10), incisional pain (Minimal), tolerating diet and flatus present (Not yet) baby status: NICU (Baby is currently in NICU intubated at [facility]. Patient states that the baby is intubated but improving.) Date Patient Seen: 06/25/23 Time Patient Seen: 15:46 Exam Vital Signs (past 8 hours): Oxygen Delivery Method Room Air Const General: cooperative, healthy appearing, comfortable and well developed Orientation: alert, awake and oriented x3 HENMT Head: normal to inspection and normocephalic Mouth: lip normal Eyes General: appearance normal, both eyes and all related structures Neck Neck: normal visual inspection Resp Effort & Inspection: normal respiratory effort Auscultation: clear to auscultation bilaterally Cardio Palpation: normal PMI Rate: regular rate Rhythm: regular rhythm Heart Sounds: S1 normal and S2 normal Back/Spine/Pelvis Back: normal to inspection and CVA tenderness (No CVA tenderness.) Skin General: no rashes or lesions noted Neuro General: patient awake and patient oriented x3 Extrem General: normal to inspection Right lower extremity: lower leg Details: tenderness (No calf tenderness no negative Homans sign) Left lower extremity: lower leg Details: tenderness (No calf tenderness negative Homans sign) Psych Appearance: grossly normal Objective Labs 06/25/23 14:05 06/25/23 14:05 Labs: Laboratory Results - last 24 hr 06/25/23 06/25/23 06/25/23 00:00 01:08 14:05 WBC 14.8 H 11.9 H RBC 4.08 3.70 L Hgb 11.1 L 10.2 L Hct 33.0 L 30.5 L MCV 80.9 82.3 MCH 27.3 27.5 MCHC 33.7 33.4 RDW 14.9 H 14.4 Plt Count 218 197 Neut % (Auto) 86.4 H 92.9 H Lymph % (Auto) 8.2 L 3.5 L [place] % (Auto) 5.0 3.3 Eos % (Auto) 0.3 L 0.0 L Baso % (Auto) 0.1 0.3 Neut # (Auto) 86878 H 35076 H Lymph # (Auto) 1200 400 L [place] # (Auto) 700 400 Eos # (Auto) 100 0 Baso # (Auto) 0 0 PT 10.8 INR 0.9 APTT 29 Fibrinogen 447 Sodium 134 L 131 L Potassium 3.7 3.9 Chloride 106 101 Carbon Dioxide 21 L 26 BUN 18 H 20 H Creatinine 0.63 0.61 Estimated GFR > 60 > 60 BUN/Creatinine Ratio 28.6 H 32.8 H Glucose 103 H 92 Calcium 8.9 8.6 Total Bilirubin 0.6 0.7 AST 74 H 82 H ALT 121 H 116 H Alkaline Phosphatase 192 H 154 H Total Protein 7.1 6.2 L Albumin 3.6 3.2 L Globulin 3.5 3.0 Albumin/Globulin Ratio 1.0 1.1 Urine Color Yellow Urine Appearance Clear Urine pH 6.5 Ur Specific [place] >=1.030 H Urine Protein 1+ H Urine Glucose (UA) Negative Urine Ketones Negative Urine Occult Blood Negative Urine Nitrate Positive H Urine Bilirubin Negative Urine Urobilinogen 1.0 Ur Leukocyte Esterase Negative Urine RBC None seen Urine WBC 1-5/hpf Ur Squamous Epith Cells 0-1 /hpf D Amorphous Sediment 2+ Urine Bacteria None seen Ur Culture Indicated? Specimen cultured Vol Urine Centrifuged 10ml (spun) Ref Test (Refrig) Cancelled Blood Type A Positive Antibody Screen Negative Assessment & Plan Plan day: 0 plan OB: routine care Comments: Patient has cholestasis of her itching is resolving with time. She had an episode of facial itching which responded well to Benadryl as well as Atarax. I have discussed the option of placing her on Claritin which she accepts. Reviewed her CBC white counts improving hemoglobin shows minimal decreased platelets also remaining stable. Her LFTs remain in the same range as they have been. We will try and get the patient discharged when safe so she can go be with her baby. Time Spent With Patient Time: Total time spent is greater than 50% in coordination of care (as documented) at patient's floor/unit and/or counseling patient: Time with patient: 25 - 35 minutes
[2023-06-25] MEDS: LANOLIN OINT 7 GM 1 APPLIC TOP (16:15)
[2023-06-25] MEDS: LORATADINE 10 MG TABLET PO (16:16)
[2023-06-26] MEDS: PANTOPRAZOLE DR 40 MG TABLET PO (01:06)
[2023-06-26] MEDS: ZOLPIDEM 5 MG TABLET PO (01:06)
[2023-06-26] MEDS: ACETAMINOPHEN 325 MG TABLET 650 MG PO ×3 (03:36→18:29)
[2023-06-26] MEDS: IBUPROFEN 600 MG TABLET PO ×4 (03:37→16:27)
[2023-06-26] MEDS: OXYCODONE IR 5 MG TABLET PO ×3 (05:43→23:17)
[2023-06-26] MEDS: DOCUSATE 100 MG CAPSULE PO (08:38)
[2023-06-26] MEDS: PRENATAL VIT,CALC/IRON/FOLIC 1 TABLET 1 TAB PO (08:38)
--- NOTE | 2023-06-26 08:56 | PM.OBPN.1 ---
Subjective - OB Subjective Patient comments: no complaints, pain well controlled, incisional pain (appropriate ) and flatus present [place] baby status: NICU feeding status: pumping and storing Date Patient Seen: 06/26/23 Time Patient Seen: 08:56 Interval history: POD1 s/p emergent 1LTCS at 35wga, suspected placental abruption Exam Vital Signs (past 8 hours): Oxygen Delivery Method Room Air BP 93-106/52-73 HR 52-73bpm RR 18 Tc 98.6/Tm 99.2 Robust UOP per RN report Narrative Exam Narrative: Pt resting in bed, tearful in discussing intrapartum course, NAD Const General: cooperative and comfortable Nutritional Appearance: well nourished Orientation: alert, awake and oriented x3 HENMT Head: normal to inspection Mouth: moist mucous membranes Eyes General: appearance normal, both eyes and all related structures Neck Neck: normal visual inspection Chest Chest: normal inspection of the chest Resp Effort & Inspection: normal respiratory effort GI Other: fundus firm << umb, dressing in place c/d/i with scant old drainage noted at R apex mild suprapubic tenderness without mao uterine tenderness Other: pelvic exam deferred, mild suprapubic tenderness as per GI exam Skin General: no rashes or lesions noted Neuro General: patient alert, patient awake and patient oriented x3 Extrem General: normal to inspection Psych Appearance: grossly normal Mental Status: mental status grossly normal and other (appropriately tearful in discussing hospital events ) Speech and Movement: speech and movement normal Mood: other (appropriately tearful in discussing hospital events ) Thought Process: normal Objective Labs 06/25/23 14:05 06/25/23 14:05 Labs: Laboratory Results - last 24 hr 06/25/23 06/25/23 08:20 14:05 WBC 11.9 H RBC 3.70 L Hgb 10.2 L Hct 30.5 L MCV 82.3 MCH 27.5 MCHC 33.4 RDW 14.4 Plt Count 197 Neut % (Auto) 92.9 H Lymph % (Auto) 3.5 L [place] % (Auto) 3.3 Eos % (Auto) 0.0 L Baso % (Auto) 0.3 Neut # (Auto) 77087 H Lymph # (Auto) 400 L [place] # (Auto) 400 Eos # (Auto) 0 Baso # (Auto) 0 Sodium 131 L Potassium 3.9 Chloride 101 Carbon Dioxide 26 BUN 20 H Creatinine 0.61 Estimated GFR > 60 BUN/Creatinine Ratio 32.8 H Glucose 92 Calcium 8.6 Total Bilirubin 0.7 AST 82 H ALT 116 H Alkaline Phosphatase 154 H Total Protein 6.2 L Albumin 3.2 L Globulin 3.0 Albumin/Globulin Ratio 1.1 Urine Color Yellow Urine Appearance Clear Urine pH 6.5 Ur Specific [place] >=1.030 H Urine Protein 1+ H Urine Glucose (UA) Negative Urine Ketones Negative Urine Occult Blood Negative Urine Nitrate Positive H Urine Bilirubin Negative Urine Urobilinogen 1.0 Ur Leukocyte Esterase Negative Urine RBC None seen Urine WBC 1-5/hpf Ur Squamous Epith Cells 0-1 /hpf D Amorphous Sediment 2+ Urine Bacteria None seen Ur Culture Indicated? Specimen cultured Vol Urine Centrifuged 10ml (spun) Ref Test (Refrig) See scanned report Assessment & Plan Plan day: 1 plan OB: routine postop care Comments: 27yo POD1 s/p emergent 1LTCS at 35wga due to concerns for placental abruption Postop routine care, fully advanced +flatus, pain well controlled with current analgesia abd binder PRN IS at bedside Placental abruption Dx based on clinical presentation per Dr. Treviño Isolated transaminitis on admission in setting of known maternal ICHP, now down-trending Supportive listening provided, high risk PPD secondary to traumatic events surrounding delivery Cystitis empiric dx based on abnormal urine culture on admission, persistent suprapubic tenderness 1g IV ceftriaxone ordered Anticipate dc to home later today, POD1 to facilitate maternal bonding with at OSH NICU vs POD2 pending clinical course Routine 1wk incision check in office, 4-6wk Time Spent With Patient Time: Total time spent is greater than 50% in coordination of care (as documented) at patient's floor/unit and/or counseling patient: Time with patient: less than 15 minutes
[2023-06-26] MEDS: cefTRIAXone 1,000 MG in SODIUM CHLORIDE 0.9% 100 ML 200 MG IV (10:21)
[2023-06-27] MEDS: IBUPROFEN 600 MG TABLET PO ×2 (00:29→07:11)
[2023-06-27] MEDS: ACETAMINOPHEN 325 MG TABLET 650 MG PO ×2 (00:30→07:11)
[2023-06-27] MEDS: OXYCODONE IR 10 MG TABLET PO (02:35)
[2023-06-27] MEDS: ZOLPIDEM 5 MG TABLET PO (02:35)
--- NOTE | 2023-06-27 09:26 | PM.OBDS.1 ---
Discharge Providers Provider Date of admission: 06/24/23 23:05 Discharge Date: 06/27/23 Primary care physician: Niko Case MD Consults: 06/25/23 04:30 Consult to [place] Supervisor Routine Comment: Discharge provider: Niko Case MD Summary Hospital Course Date Patient Seen: 06/27/23 Time Patient Seen: 10:07 Diagnoses: Intrauterine gestation, 35 +weeks gestational age, delivered by primary section Placental abruption Postoperative anemia due to blood loss Hospital Course: The patient presented early on the morning of 06/25/2023 with contractions at 35+ weeks gestational age associated with vaginal bleeding and uterine tenderness. Assessment on the center strongly suggested an ongoing and worsening placental abruption therefore the decision was made to proceed to primary section. Accordingly the patient early on the morning of 06/25/2023 underwent an uneventful primary section by low transverse cervical incision productive of a viable male infant with Apgars of 4/5/7. Cord pH's were in the 7.23-7.24 range. Full details of that procedure well summarized on Dr. Treviño's operative note of that date. Following surgery the patient has done extremely well with prompt return of bowel and bladder function, she is ambulating independently, tolerating a regular diet, and her pain is well controlled with oral pain medications. She will be discharged at this time to home in an afebrile normotensive condition after counseling regarding precautionary symptoms, limitations of activity, medications, and plans for follow-up which will be in 1 week for incision check. Patient will use [id number]-ayiwetn Tylenol and ibuprofen for pain relief at home.. In addition the patient will continue vitamins and take oral iron supplements daily along with vitamin-C for the next 30 days. Peripartum Data Delivery Method: Section Laceration Description: None Episiotomy description: None Procedures: Spinal block anesthetic Primary section (low transverse cervical) complications: none [place] 1: Gender: Male Disposition of : home Status at Discharge Cognitive/behavioral status at discharge: oriented Functional status at discharge: independent ambulation Overall status at discharge: patient is progressing back to baseline Time Spent with Patient Time attestation: Total time spent providing and/or coordinating discharge services: Time spent: Less than 30 minutes Objective Labs 06/25/23 14:05 06/25/23 14:05 Exam Vital Signs (past 8 hours): Oxygen Delivery Method Room Air Const General: cooperative and comfortable Nutritional Appearance: average body habitus Orientation: alert and oriented x3 HENMT Head: normal to inspection, atraumatic and abrasion Ears: hearing grossly normal bilaterally Face and sinus: face symmetric Eyes General: appearance normal, both eyes and all related structures Conjunctivae: conjunctivae normal Sclera: sclerae normal EOM: EOM intact bilaterally Neck Neck: normal visual inspection Resp Effort & Inspection: normal respiratory effort and able to speak in complete sentences Auscultation: clear to auscultation bilaterally Cardio Rate: regular rate Rhythm: regular rhythm Heart Sounds: S1 normal, S2 normal and no murmurs GI Inspection: normal to inspection and incision (Surgical dressing clean and dry) Palpation: soft, no hepatosplenomegaly and tender (Mild, diffuse postsurgical tenderness) Auscultation: normal bowel sounds External Female Exam: other (No significant bleeding noted) Extrem General: no calf tenderness Psych Appearance: grossly normal Mental Status: mental status grossly normal Speech and Movement: speech and movement normal Mood: congruent mood Affect: normal affect Attitude: cooperative Thought Process: normal Thought Content: normal Judgment: judgment good Discharge Plan Discharge Plan Patient Disposition: Home Provider Discharge Comment: Please review the written instructions you received when you were discharged from the hospital. Your follow-up appointment will be scheduled for 1 week after discharge and I look forward to seeing you then. If however in the meanwhile you have any questions, concerns, or problems, please contact me either through the office phone at [phone], or via the patient portal. Discharge orders & Medications Prescriptions: Discontinued ursodiol 300 mg capsule 300 mg PO TID Qty: 90 3RF No Action (DME) breast pump Device See Rx Instructions .ROUTE .MEDSUPPLY Qty: 1 0RF Rx Instructions: Double electric breast pump with supplies (DME) breast pump Device See Rx Instructions .Route Qty: 1 0RF Rx Instructions: As directed - Double Electric Follow up/Referrals: Niko Case MD [Primary Care Provider] - 07/04/23 11:45 am (Follow up with Dr. Case for incision check as scheduled. You will also have a follow up in six weeks scheduled for 08/08/2023 at 11:30. ) Visit Report/Discharge Packet Stand Alone Forms: Patient Portal/API, Stroke Signs & Symptoms Discharge Data Primary Care Provider: Niko Case
[2023-06-27 10:10] VITALS: BP 100/68; PULSE 74; RESP 18; TEMP 37.1
[2023-06-28 11:11] LABS: Bile Acids 11.4 umol/L (0.0-10.0)
== END 2023-06-27 09:46 | disposition home or self-care (01) | DRG 540 ==
PROVIDERS: Admitting Provider Obstetrics & Gynecology; PCP Obstetrics & Gynecology; Referring Provider Obstetrics & Gynecology; Visit Provider Obstetrics & Gynecology
PROC: 10D00Z1 Extraction of Products of Conception, Low, Open Approach (ICD-10-PCS; CPT 59514; principal; 2023-06-25 02:45)
DX: O45.93 Premature separation of placenta, unspecified, third trimester (principal); O75.3 Other infection during labor; O26.643 Intrahepatic cholestasis of pregnancy, third trimester; Z3A.35 35 weeks gestation of pregnancy; Z37.0 Single live birth
CPT/HCPCS: 36415; 59050; 59514; 76819; 80053; 81003; 81015; 82239; 85025; 85384; 85610; 85730; 86850; 86900; 86901; 87086; A9270; G0379; J0136; J0690; J0696; J1100; J1200; J1885; J2274; J2405; J2765; J3010

== ENCOUNTER 2023-08-03 13:48 | Emergency (ER) | payer OTHER, MEDICAID, SELFPAY ==
[2023-08-03 14:00] VITALS: BP 124/61; PULSE 74; RESP 18; TEMP 36.8; O2SAT 100; BMI 31.8
--- NOTE | 2023-08-03 15:12 | ED.FEMALEGU ---
HPI - Female Genitourinary General Chief complaint: Vaginal Bleeding Stated complaint: 5 wks post c section, vaginal bleeding Time Seen by Provider: 08/03/23 14:13 Source: patient Mode of arrival: Ambulatory History of Present Illness HPI Narrative: Patient 27-year-old female presenting today 5 weeks after emergent for placental abruption presenting today with vaginal bleeding. C section was 06/25/23. She reports that she never quite stopped having vaginal bleeding after her but it did slow stopped for about a day however for the last 4 days she has had increased vaginal bleeding. Today she said it was quite a gush of blood. She denies any significant cramping but does have some mild cramping. No lightheadedness dizziness or syncopal episodes. Denies any sort of fever. Related Data Home Medications Medication Instructions Recorded Confirmed prenat.vits,jasiel,[id number] 1 tab PO DAILY 12/28/21 06/20/23 Previous Rx's Medication Instructions Recorded breast pump #1 ea 08/03/22 ondansetron 4 mg disintegrating 4 mg PO Q6H PRN nausea and 01/27/23 tablet vomiting #20 tabs hydroxyzine HCl 25 mg tablet 25 mg PO QID PRN itching #60 tabs 06/15/23 oxycodone 5 mg tablet 5 mg PO Q4-6H PRN Mild or moderate 06/27/23 pain #20 tabs zolpidem 5 mg tablet 5 mg PO BEDTIME PRN Sleep #5 tabs 06/27/23 breast pump #1 ea 07/04/23 Allergies Allergy/AdvReac Type Severity Reaction Status Date / Time No Known Drug Allergies Allergy Verified 07/04/23 11:48 Patient History Medical History (Updated 08/03/23 @ 17:37 by Geri Lopez DO) History of cholestasis during depression Cholestasis during Scalp contusion Surgical History Anesthesia [place] teeth extracted (~2013) History of tonsillectomy and adenoidectomy (~2002) Family History Mother Hypothyroid Autoimmune disorder History of Graves' disease Grandmother Hypothyroid Pramod's disease Grandmother Lung cancer Breast cancer Brain cancer Skin cancer Brother High-functioning autism spectrum disorder Grandfather History of heart disease alcohol intake frequency: holidays/special occasions only Substance Use Type: does not use Exam Initial Vital Signs Initial Vital Signs: Vital Signs Temperature 98.3 F 08/03/23 14:00 Pulse Rate 74 08/03/23 14:00 Respiratory Rate 18 08/03/23 14:00 Blood Pressure 124/61 08/03/23 14:00 Pulse Oximetry 100 08/03/23 14:00 Oxygen Delivery Method Room Air 08/03/23 14:00 GENERAL: Well-appearing 27-year-old female and in no acute distress. HEENT: Head atraumatic,EOMI, pupils reactive, face symmetric, moist mucous membranes CARDIOVASCULAR: Regular rate and rhythm without murmurs, rubs or gallops. RESPIRATORY: Breath sounds equal bilaterally, no wheezes rales or rhonchi. ABDOMEN: Soft, nontender. Normoactive bowel sounds all 4 quadrants. No guarding or rebound. PELVIC: External genitalia is normal, open vaginal bleeding dark, no excessive hemorrhage EXTREMITIES: Normal range of motion, no clubbing or edema. Neurovascularly intact NEUROLOGICAL: Alert and oriented x4.Normal gait and speech. SKIN: Warm, dry, no laceration, no petechiae, no rashes or lesions. Course Orders Ordered: ED Orders 08/03/23 15:12 US pelvic complete Stat 08/03/23 15:34 CBC Auto Diff [Complete Blood Count AUTO DIFF] Stat CMP [Comprehensive Metabolic Panel] Stat Vital Signs Vital signs: Vital Signs - 8 hr 08/03/23 14:00 08/03/23 15:30 08/03/23 15:50 Temperature 98.3 F Pulse Rate 74 79 75 Respiratory Rate 18 16 Blood Pressure 124/61 102/54 L Pulse Oximetry 100 98 99 Oxygen Delivery Method Room Air 08/03/23 17:54 08/03/23 17:54 Temperature Pulse Rate 71 Respiratory Rate Blood Pressure 101/62 Pulse Oximetry 98 Oxygen Delivery Method MDM - Female Genitourinary Lab Data 08/03/23 15:34 08/03/23 15:34 Labs: Lab Results 08/03/23 Range/Units 15:34 WBC 7.6 (4.5-11.0) X10^3/uL RBC 4.39 (4.0-5.2) X10^6/uL Hgb 11.8 L (12.0-16.0) g/dL Hct 36.1 (36-46) % MCV 82.2 (80-100) fL MCH 27.0 (26-34) PG MCHC 32.8 (30-36) % RDW 17.2 H (11.6-14.8) % Plt Count 252 (150-400) X10^3/uL Neut % (Auto) 67.2 (50-75) % Lymph % (Auto) 22.3 L (25-40) % [place] % (Auto) 7.8 (3-14) % Eos % (Auto) 2.2 (2-4) % Baso % (Auto) 0.5 (0-2) % Neut # (Auto) 5100 (4343-7994) /uL Lymph # (Auto) 1700 (7427-2057) /uL [place] # (Auto) 600 (0-900) /uL Eos # (Auto) 200 (0-450) /uL Baso # (Auto) 0 (0-100) /uL Sodium 140 (137-145) mmol/L Potassium 3.7 (3.4-5.1) mmol/L Chloride 106 (98-107) mmol/L Carbon Dioxide 27 (22-32) mmol/L BUN 25 H (7-17) mg/dL Creatinine 0.87 (0.52-1.04) mg/dL Estimated GFR > 60 (>60) mL/min BUN/Creatinine Ratio 28.7 H (6-22) Glucose 86 (70-100) mg/dL Calcium 9.0 (8.4-10.2) mg/dL Total Bilirubin 0.5 (0.2-1.3) mg/dL AST 28 (14-36) IU/L ALT 21 (<35) IU/L Alkaline Phosphatase 91 (38-126) U/L Total Protein 7.0 (6.3-8.2) g/dL Albumin 4.4 (3.5-5.0) g/dL Globulin 2.6 (1.7-4.1) g/dL Albumin/Globulin Ratio 1.7 (1.0-2.8) Imaging Data US - BRICK 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 Additional endovaginal scanning was necessary due to incomplete visualization of the adnexal and endometrial structures by transabdominal scanning. COMPARISON: [facility], , OB BIOPHYSICAL PROFILE, 06/25/2023, 0:43. FINDINGS: Uterus: Uterus is prominent in size at 10.2 x 6.1 x 6.4 cm. The myometrium is heterogeneous. The endometrium measures 23 mm combined thickness. Endometrium is heterogeneous. Ovaries: The right ovary measures 3.8 x 2.2 x 2.5 cm, with a calculated ovarian volume of 10.7 cc. The left ovary measures 5.8 x 3.0 x 3.0 cm, with a calculated ovarian volume of 27.0 cc. The ovaries have a normal sonographic appearance. Greater than 12 follicles can be seen in each ovary. There is a 1.5 cm complex cyst in the left ovary. No adnexal masses are seen. Other: No pathologic free abdominal or pelvic fluid. IMPRESSION: 1. Uterus is enlarged, likely related to recent . Endometrium is thickened and heterogeneous. Cannot rule out retained products of conception. Recommend clinical correlation and follow-up imaging as clinically indicated. 2. More than 12 ovarian follicles in each ovarie. This finding could be related to polycystic ovaries. Recommend clinical correlation. 3. A 1.5 complex cyst in the left ovary, most likely a hemorrhagic cyst. We strive to produce accurate, complete, and clear reports of imaging services. To assist us in improving patient care, this report was composed using standard report templates and voice recognition software. Therefore, it may contain abnormal punctuation, insertions and/or omissions. Occasional wrong-word or sound-alike substitutions may occur. Though we review the report and make efforts to correct it, we do recommend that the report be read carefully in proper context to recognize any text inaccuracies. Dictated by: Kee Benton M.D. on 08/03/2023 at 17:16 MDM Narrative Medical decision making narrative: Patient 27-year-old female presents today after approximately weeks ago with continued vaginal bleeding. She reports increased vaginal bleeding over the last 4-5 days. She denies any sort of fever. Blood work reviewed hemoglobin 11.8 hematocrit 36.1 platelets 252, electrolyte stable creatinine within normal limits Ultrasound does show a thickened endometrium enlarged uterus recently can not rule out retained products of conception Differential diagnosis include retained products, menstrual cycle, endometritis 5165 Dr. Nava is updated patient's symptoms test results along with stable vitals and hematocrit. She recommends following up in clinic. She will make sure that clinic calls her. Patient changed pad once in the ED no significant bleeding. Not tachycardic or hypotensive. She is able to ambulate without any problems. There is concern for some possible retained products she will follow-up with obstetrics/gynecology nurse tomorrow. Discharge Plan Departure Patient Disposition: Home Clinical Impression: Vaginal bleeding Instructions: DI for Vaginal Bleeding Activity Restrictions/Additional Instructions: *You have been diagnosed with vaginal bleeding *What to do: At this time please monitor very closely. Dr. Nava is aware they will likely try and see you in clinic tomorrow. If you do not hear from the office by 9 or 10:00 a.m. please give them call *Continue to take medications as directed *Follow up with your primary care provider in 2-3 days or call [phone] *Return to ER if you should have increasing bleeding dizziness passing out or any new, worsening or concerning symptoms Prescriptions: No Action hydroxyzine HCl 25 mg tablet 25 mg PO QID PRN (Reason: itching) Qty: 60 2RF ondansetron 4 mg tablet,disintegrating 4 mg PO Q6H PRN (Reason: nausea and vomiting) Qty: 20 2RF prenat.vits,jasiel,[id number] Tablet 1 tab PO DAILY (DME) breast pump Device See Rx Instructions .ROUTE .MEDSUPPLY Qty: 1 0RF Rx Instructions: Double electric breast pump with supplies (DME) breast pump Device See Rx Instructions .Route Qty: 1 0RF Rx Instructions: As directed - Double Electric zolpidem 5 mg Tablet 5 mg PO BEDTIME PRN (Reason: Sleep) Qty: 5 0RF oxycodone 5 mg Tablet 5 mg PO Q4-6H PRN (Reason: Mild or moderate pain) Qty: 20 0RF Referrals: Shefali Nava MD [Physician] - Niko Case MD [Primary Care Provider] - Stand Alone Forms: Patient Portal/API
[2023-08-03 15:30] VITALS: BP 102/54; PULSE 79; RESP 16; O2SAT 98
[2023-08-03 15:47] LABS: Add Manual Diff / Slide Review NO; Basophils Absolute Auto 0 /uL (0-100); Basophils Percent Auto 0.5 % (0-2); Eosinophils Absolute Auto 200 /uL (0-450); Eosinophils Percent Auto 2.2 % (2-4); Hematocrit 36.1 % (36-46); Hemoglobin 11.8 g/dL (12.0-16.0); Lymphocytes Absolute Auto 1700 /uL (1100-4500); Lymphocytes Percent Auto 22.3 % (25-40); Mean Corpuscular HGB Conc 32.8 % (30-36); Mean Corpuscular Volume 82.2 fL (80-100); Monocytes Absolute Auto 600 /uL (0-900); Monocytes Percent Auto 7.8 % (3-14); Neutrophils Absolute Auto 5100 /uL (1500-7000); Neutrophils Percent Auto 67.2 % (50-75); Platelet Count 252 X10^3/uL (150-400); Red Blood Cell Count 4.39 X10^6/uL (4.0-5.2); Red Cell Distribution Width 17.2 % (11.6-14.8); White Blood Cell Count 7.6 X10^3/uL (4.5-11.0)
[2023-08-03 15:50] VITALS: PULSE 75; O2SAT 99
[2023-08-03 16:12] LABS: Alanine Aminotransferase 21 IU/L (<35); Albumin 4.4 g/dL (3.5-5.0); Albumin Globulin Ratio 1.7 (1.0-2.8); Alkaline Phosphatase 91 U/L (38-126); Aspartate Aminotransferase 28 IU/L (14-36); BUN Creatinine Ratio 28.7 (6-22); Bilirubin Total 0.5 mg/dL (0.2-1.3); Blood Urea Nitrogen 25 mg/dL (7-17); Carbon Dioxide 27 mmol/L (22-32); Chloride 106 mmol/L (98-107); Estimated Glomerular Filt Rate > 60 mL/min (>60); Globulin 2.6 g/dL (1.7-4.1); Glucose 86 mg/dL (70-100); HEMOLYSIS 15 (0-50); Potassium 3.7 mmol/L (3.4-5.1); Sodium 140 mmol/L (137-145)
[2023-08-03 17:54] VITALS: BP 101/62; PULSE 71; O2SAT 98
== END 2023-08-03 18:05 | disposition home or self-care (01) ==
PROVIDERS: Emergency Provider Emergency Medicine; PCP Obstetrics & Gynecology
DX: N93.9 Abnormal uterine and vaginal bleeding, unspecified (principal)
CPT/HCPCS: 76856; 80053; 85025; 99281; 99282

== ENCOUNTER → 2024-04-29 10:05 | Outpatient (CLI) | payer MEDICAID, SELFPAY ==
--- NOTE | 2024-04-29 10:10 | DI.CT.S_ITS ---
PROCEDURE: CT ABDOMEN PELVIS WO CON INDICATIONS: possible incisional hernia at the site of her TECHNIQUE: Axial sections were acquired from the lung bases to the pubic symphysis. Coronal and sagittal reformats were performed. For radiation dose reduction, the following was used: automated exposure control, adjustment of mA and/or kV according to patient size. COMPARISON: None. FINDINGS: Image quality: Diagnostic. Lower Chest: No significant findings. URINARY: Right Kidney: No stones or hydronephrosis. Right Ureter: No hydroureter. Left Kidney: No stones or hydronephrosis. Left Ureter: No hydroureter. Bladder: Normal wall thickness. No stones. ABDOMEN: Liver: No contour-deforming solid mass. Gallbladder: Multiple stones without wallt thickening. Biliary ducts: No biliary dilation. Pancreas: No ductal dilation. Spleen: Size is within normal limits. Adrenal Glands: No adrenal nodules. Stomach and Bowel: Normal colonic caliber, without significant wall thickening. Peritoneum: No abnormal intraperitoneal fluid. No free air. Ventral Wall: No hernia. Abdominal Nodes: No enlarged retroperitoneal or mesenteric lymph nodes. Vessels: Aorta and inferior vena cava are normal in size. PELVIS: Pelvic Organs: IUD is present. Pelvic Nodes: Unremarkable. Miscellaneous: No inguinal hernias are seen. Bones: Unremarkable. IMPRESSION: Cholelithiasis without wall thickening. No visualized incisional hernia. Dictated by: Carla Blue M.D. on 04/29/2024 at 10:44 Approved by: Carla Blue M.D. on 04/29/2024 at 11:23
== END ==
LOC: CT 10:09
PROVIDERS: Referring Provider Obstetrics & Gynecology; Visit Provider Obstetrics & Gynecology
DX: L76.82 Other postprocedural complications of skin and subcutaneous tissue (principal); K80.20 Calculus of gallbladder without cholecystitis without obstruction
CPT/HCPCS: 74176

== ENCOUNTER → 2024-05-09 15:51 | Outpatient (CLI) | payer MEDICAID, SELFPAY ==
[2024-05-09 16:59] LABS: Influenza A - CEPHEID Flu A NEGATIVE (NEGATIVE); Influenza B - CEPHEID Flu B NEGATIVE (NEGATIVE); Respiratory Syncytial Virus Negative (Negative)
[2024-05-09 17:23] LABS: COVID-19 CEPHEID 4-PLEX PCR Negative (Negative)
== END ==
PROVIDERS: Visit Provider Nurse Practitioner Family
DX: R50.9 Fever, unspecified (principal); R05.9 Cough, unspecified
CPT/HCPCS: 0241U; 87070

== ENCOUNTER → 2024-05-09 15:59 | Outpatient (CLI) | payer MEDICAID, SELFPAY ==
--- NOTE | 2024-05-09 16:00 | DI.RAD.S_ITS ---
PROCEDURE: XR CHEST 2V INDICATIONS: Cough TECHNIQUE: 2 views of the chest were acquired. COMPARISON: None. FINDINGS: Surgical changes and devices: None. Lungs and pleura: Lungs are clear. No pleural effusions or pneumothorax. Mediastinum: Mediastinal contours are normal. Heart size is normal. Bones and chest wall: No suspicious bony abnormalities. Soft tissues appear unremarkable. IMPRESSION: No acute cardiopulmonary abnormality is seen. Dictated by: Ernesto Cavanaugh M.D. on 05/09/2024 at 21:42 Approved by: Ernesto Cavanaugh M.D. on 05/09/2024 at 21:43
== END ==
PROVIDERS: Referring Provider Nurse Practitioner Family; Visit Provider Nurse Practitioner Family
DX: R05.9 Cough, unspecified (principal); R50.9 Fever, unspecified
CPT/HCPCS: 0241U; 71046; 87070

== ENCOUNTER → 2024-06-27 12:21 | Outpatient (CLI) | payer MEDICAID, SELFPAY ==
--- NOTE | 2024-06-27 13:40 | DI.MRI.S_ITS ---
PROCEDURE: MR PELVIS WO/W CON INDICATIONS: Cyclic incisional pain c/w endometriosis in abd wall TECHNIQUE: Coronal HASTE, sagittal breath-hold T2 FSE; axial T1 FSE with and without fat saturation through the pelvis. Optional long- and short-axis uterine nonbreath-hold T2 FSE through the uterus. Sagittal or axial dynamic VIBE during administration of contrast. Post-contrast axial or coronal VIBE/2-D FLASH with fat saturation from the iliac crests to the symphysis. Optional diffusion weighted imaging and ADC may be performed. COMPARISON: [facility], CT, CT ABDOMEN PELVIS WO CON, 04/29/2024, 10:13. FINDINGS: Image quality: Diagnostic Lower abdomen: No bowel obstruction. No pathologic ascites Bladder: Unremarkable Reproductive organs: Endometrium measures 6 mm. Junctional zone is within normal limits. Cervix is within normal limits. Multiple follicles are seen in both ovaries, which show normal positioning near the pelvic sidewalls. No endometrioma identified. Vaginal contraceptive device. On precontrast T1 weighted images, there is no indication of deep pelvic active endometriosis deposits with intrinsic T1 signal. There is a tiny linear focus of intrinsic T1 signal along the right anterior abdominal wall adjacent to the defect. This is under 5 mm. (11/17) This is also seen on image 23/40, 25/ Rectum: Unremarkable Vessels and lymph nodes: No abdominal aortic aneurysm. No large lymph nodes by size criteria. Pelvic wall: As above. No other abnormality Bones: No aggressive appearing osseous abnormality. IMPRESSION: Tiny linear focus of intrinsic T1 signal along the right anterior abdominal wall adjacent to the scar. See reference images above. If this corresponds to the reported cyclical incisional pain, an endometriosis deposits is possible. No discrete nodular deposit identified. No MR evidence of active deep pelvic endometriosis deposits. No endometrioma Other findings above. Dictated by: Geo Mora M.D. on 06/28/2024 at 8:19 Approved by: Geo Mora M.D. on 06/28/2024 at 8:28
== END ==
PROVIDERS: Referring Provider Obstetrics & Gynecology; Visit Provider Obstetrics & Gynecology
DX: N80.6 Endometriosis in cutaneous scar (principal)
CPT/HCPCS: 72197; A9579